=== PATIENT | male | born 1945 | race Caucasian/White ===

== ENCOUNTER 2022-07-20 17:02 | Inpatient (IN) | payer OTHER ==
[~2022-07-20] VITALS: Ht 185.4 cm; Wt 63.0 kg
[2022-07-20 17:57] VITALS: BP_SYST 161
--- NOTE | 2022-07-20 18:39 | NUR ---
PATIENT CAME TO ER FOR GENERALIZE WEAKNESS, LOST 38 LBS IN THE LAST 2 1/2 MONTHS, PLACE IN BED 8 SEEN BY EDP WITH ORDER MARYLU OUT. PATIENT STATES HE HAS NO APPETITE.
[2022-07-20 19:21] LABS: BASOPHILS % (AUTO) 0.1 % (0.0-2.0); EOSINOPHILS % (AUTO) 0.1 % (0.0-4.0); HEMATOCRIT 43.9 % (36-54); HEMOGLOBIN 14.5 g/dL (14.0-18.0); LYMPHOCYTES # (AUTO) 0.9 K/uL (1.0-5.5); LYMPHOCYTES % (AUTO) 5.8 % (20.5-51.5); MEAN CORPUSCULAR HEMOGLOBIN 30 pg (27-31); MEAN CORPUSCULAR HGB CONC 33 % (32-36); MEAN CORPUSCULAR VOLUME 90 fL (79.0-98.0); MONOCYTES # (AUTO) 1.7 K/uL (0.0-1.0); MONOCYTES % (AUTO) 10.6 % (1.7-9.3); NEUTROPHILS # (AUTO) 13.7 K/uL (1.8-7.7); PLATELET COUNT (AUTO) 411 K/uL (130-430); RED BLOOD CELL COUNT(AUTO) 4.88 MIL/uL (4.2-6.2); RED CELL DISTRIBUTION WIDTH 13.6 % (9.0-15.0); WHITE BLOOD COUNT (AUTO) 16.4 K/uL (4.8-10.8)
[2022-07-20 19:22] LABS: ANION GAP 9 (5-15); CHLORIDE 100 mmol/L (98-107); CREATININE 1.09 mg/dL (0.55-1.30); GLUCOSE 121 mg/dL (70-99); UREA NITROGEN, BLOOD 27 mg/dL (8-21)
[2022-07-20 19:27] LABS: ALANINE AMINOTRANSFERASE 60 U/L (12-78); ALBUMIN 2.7 g/dL (3.4-4.8); ASPARTATE AMINOTRANSFERASE 62 U/L (10-37); TOTAL BILIRUBIN 0.6 mg/dL (0.0-1.0)
[2022-07-20 19:36] LABS: CALCIUM 12.5 mg/dL (8.4-11.0)
[2022-07-20 19:51] LABS: BILIRUBIN,URINE NEGATIVE (NEGATIVE); BLOOD, URINE NEGATIVE (NEGATIVE); CLARITY/URINE CLEAR (CLEAR); COLOR,URINE YELLOW (YELLOW); GLUCOSE,URINE NEGATIVE (NEGATIVE); KETONES,URINE NEGATIVE (NEGATIVE); LEUKOCYTE ESTERASE ,URINE NEGATIVE (NEGATIVE); NITRITE, URINE NEGATIVE (NEGATIVE); PH,URINE 5.5 (5.0-8.0); PROTEIN URINE NEGATIVE (NEGATIVE); UROBILINOGEN,URINE 0.2 (0.2-1.0)
[2022-07-20 20:27] LABS: NEUTROPHILS % (AUTO) 83.4 % (40.0-70.0)
[2022-07-20] MEDS ORDERED: MORPHINE 4 MG INJ. 4 MG/ML VIAL IVP ONE (20:45)
[2022-07-20] MEDS ORDERED: cefTRIAXone 1 GM IVPB PREMIX 50 ML IV ONE (20:45)
[2022-07-20] MEDS ORDERED: NACL 0.9% 2,500 ML IV ONE (20:45)
--- NOTE | 2022-07-20 21:11 | NUR ---
COVID SWAB GIVEN TO LAB
--- NOTE | 2022-07-20 21:12 | NUR ---
Admit bed requested Patient will be admitted to care of . Admitted to TELE unit. Diagnosis SEPSIS,METASTATIC PROSTATE CA Inpatient (Yes or No) YES Observation (Yes or No) N Orientation concerns or request close to nursing station (Yes or No) NO Covid Status PENDING On vent or bipap NO Isolation requirements NO Needs a sitter NO From Home (Yes or if No enter name of facility) YES Requires Dialysis (Yes or No) NO Med Rec Completed (Yes of No) PENDING
--- NOTE | 2022-07-20 22:00 | NUR ---
PT IS ALERT AND ORIENTED, RESTING IN BED, COMPLAINING ABOUT THE APIN ALL OVER ABD. BED COMMODE ON THE BED SIDE.
[2022-07-21] VITALS (23 sets, daily range): BP systolic 104–184
--- NOTE | 2022-07-21 00:35 | NUR ---
BAIN CATH INSERTION #14 HONDURAN -Maintains sterile prior inserted Bain cath #14, attempted x1, yellow urine residual with 100ml, pt tolerated well. Bain cath w/ gravity and secured with stat lock in place. Cont to monitor pt.
--- NOTE | 2022-07-21 01:14 | NUR ---
Patient will be admitted to care of [facility]. Admitted to telemetry unit. Will go to room 132 C. Belongings list completed. Complete and up to date summary report printed. SBAR report to be given at bedside with opportunity for questions.
--- NOTE | 2022-07-21 01:14 | NUR ---
ADMISSION NOTE Received patient from ER via gurney by Inna CONTRERAS and EMT transport. Patient admitted with diagnosis of metastatic cancer prostate and sepsis. Patient is awake, alert, oriented X 4. Patient oriented to hospital room, call light, toileting, pain management and safety-teach back done. Prior placed telemetry box on pt, confirmed name,, ID number, and telemetry box number with Jesus. Patient informed that I (Shena) will be his nurse and that their room number is 132-C. IV site of left hand patent after flushed w/ NS, no s/s any infiltration noted. Skin intact. Discussed poc, all safety measures, pt verbalized understanding. pt is able to use call light for assistance. Personal belongings checked and Belongings List documented. Call light within reach.Fall precaution in place, side railsx 3, bed alarmed, near Nurses' station. Cont to monitor pt.
[2022-07-21] MEDS: NACL 0.9% 1,000 ML IV SCH ×4 (01:29→21:05)
--- NOTE | 2022-07-21 01:50 | NUR ---
NOTES -pt is resting in bed comfortably. Pt denies any chest pain,sob,or any acute distress. a telemetry shows arrhythmia, AVB type 1-type 2. VSS 154/80,67, a8dgd=74% r/a. Pt's condition stable. cont to monitor pt.
--- NOTE | 2022-07-21 02:52 | NUR ---
NOTES; -Notified regarding pt had multiple of episode of dysthymia ( AV1-AV2 and possible to AV3), VS 145/70,48,p0jzd=61%. Pt denies any chest pain,sob,or any acute distress. Pt is responsive to all questions and commands w/o any difficulty. -Transfer pt to ICU, stat EKG, consult Dr. Reina and temporary external pacer per .
--- NOTE | 2022-07-21 03:04 | NUR ---
NOTES; Spoke with Dr. Reina regarding pt had multiple episodes of dysythmia (avb1-avb 2 and possible to avb 3), VS 141/69,k9pzm=51% r/a, 60-62. pt's condition stable. Theophyline 200mg po TID per md. Will transfer pt to ICU bed 5.
[2022-07-21] MEDS ORDERED: THEOPHYLLINE ANHYDROUS 200 MG TAB.SR.12H PO ONE (03:06)
--- NOTE | 2022-07-21 03:10 | NUR ---
NOTES; TRANSFERRING PT TO ICU BED 5 -Endorsed to Emmanuel-BEN at bedside. Pt is a/ox4, denies any chest pain,sob,or any acute distress. Non labored breathing noted. Transferring by bed. All belonging taken with pt to this unit.
--- NOTE | 2022-07-21 03:15 | NUR ---
pt.received via [facility].florecita conveyed pt's report/data.pt.presents w heart assessment:av-block:1-2. paged apprised of pt's status;cardio.pt.ordered transfer icu.icu:bed#5. ordered consult. ordered external pacing.pt.presents iv access location lt.wrist iv fluids infusing.o2 therapy via nasal cannulae;rate;2l/min.o2-sat%=96%.pt.presents price cath intact. v/s assessed noted b/p elevated.call light placed w/in access of the pt.
--- NOTE | 2022-07-21 03:45 | NUR ---
paged. apprised of the pt's external pacing required pacing rate. ordered. ordered pacing rate; 65bmp,pain medication:morphine:2mg ivp.o2-sat%=96%.call light placed w/in access of the pt.
[2022-07-21] MEDS: hydrALAZINE HCL 20 MG/ML VIAL IVP PRN (03:56)
[2022-07-21] MEDS ORDERED: NALOXONE HCL 0.4 MG/ML AMP (NARCAN) IVP PRN (04:15)
[2022-07-21] MEDS: MORPHINE 2 MG/ML INJ. SYRINGE IVP PRN ×2 (04:16→08:54)
--- NOTE | 2022-07-21 05:15 | NUR ---
CONSULTATION PAGED/CALLED Reason for Consultation: SEPSIS Person Who was Notified:DARREN Consulting Physician: DHAVAL Environmental Aide Specialty: Ordering Physician: UMAIR
--- NOTE | 2022-07-21 05:16 | NUR ---
CONSULTATION PAGED/CALLED Reason for Consultation: METASTATIC PROSTATE Person Who was Notified:RITESH Consulting Physician: SYLVIA Him Clerk Specialty: Ordering Physician: UMAIR Addendum: 07/21/22 at 0519 by Kamryn Stock CNA PROSTATE CA
--- NOTE | 2022-07-21 06:00 | NUR ---
pt.assessed.v/s assessed values wnl.paced rhythym.pt.assessed for cleanliness.pt.repositioned.call light placed w/in access of the pt.
[2022-07-21 07:49] LABS: ALANINE AMINOTRANSFERASE 46 U/L (12-78); ALBUMIN 2.2 g/dL (3.4-4.8); ANION GAP 6 (5-15); ASPARTATE AMINOTRANSFERASE 51 U/L (10-37); CALCIUM 12.3 mg/dL (8.4-11.0); CHLORIDE 106 mmol/L (98-107); CREATININE 0.92 mg/dL (0.55-1.30); GLUCOSE 87 mg/dL (70-99); TOTAL BILIRUBIN 0.5 mg/dL (0.0-1.0); UREA NITROGEN, BLOOD 21 mg/dL (8-21)
[2022-07-21] MEDS: THEOPHYLLINE ANHYDROUS 200 MG TAB.SR.12H PO SCH ×3 (08:29→20:57)
--- NOTE | 2022-07-21 08:43 | NUR ---
Recd pt awake and alert afib at 67, pt denies CP or sob. Pt connected to external monitor tech on stand by. IVF at 125ml/hr. Provided pt with breakfast, but pt has very poor appetite. Will continue to monitor pt. Ekg done at the bedside.
--- NOTE | 2022-07-21 09:58 | NUR ---
Dr Reina at the bedside, reviewed labs, assessed pt.
[2022-07-21 10:08] LABS: FREE T4 (FREE THYROXINE) 1.2 ng/dl (0.8-1.5); THYROID STIMULATING HORMONE 1.9 uIu/mL (0.36-3.74)
--- NOTE | 2022-07-21 10:42 | NUR ---
top and trim worker at the bedside, providing pt with supportive services.
[2022-07-21] MEDS ORDERED: ENOXAPARIN SODIUM 40 MG/0.4 ML SYRINGE SUBCUT ONE (10:45)
--- NOTE | 2022-07-21 12:20 | NUR ---
SW consult: Pt. lives alone. HEMATOLOGY TECHNICIAN met with Pt. at bedside, he was alert oriented, reported he is hard of hearing spoke to him on his right ear where he has better hearing. Pt. reported he was admitted for weakness and poor appetite. He Has a hx of high blood pressure and was diagnosed with prostate cancer about a year ago. His primary care physician is Dr. Ramey in [place]. His oncologist is Dr. Hyman through [facility]. Pt. lives alone in his apartment; he has no children and was never . He reported he has a good friend Nichol , who he authorizes to call and provide updates to. Nichol assists him per pt. and so does one of his neighbors. Pt. states that he was able to ambulate by himself but started having balance difficulty and weakness. He reported he is not able to eat properly and has no appetite. Pt. was open to home health/hospice post discharged if deemed appropriate. He was also intreated in transportation services as he is no longer able to drive himself. However, he shared that he is on a limited income and concerned if there is any associated cost. He has medi/medi and likely eligible for free senior transportation services. HEMATOLOGY TECHNICIAN spoke with Nichol who stated that Pt. hasnt really allowed for her to visit in 4 months, he is eating 3 ensures a day and is not able to eat solid meals. She reported he has no assistance in the home. Recently a neighbor began assisting with laundry and picking up his prescription but that has been for a week or so and not a long-term source of help. HEMATOLOGY TECHNICIAN left a voicemail for [employer] transportation services; and [employer] [facility] program to inquire if Pt. is eligible for services . HEMATOLOGY TECHNICIAN also left a voicemail with HCP Pt insurance [employer] [place] [employer] for follow up. SS will continue to monitor services that might be needed post DC and be available for Pt. during hospital stay as needed.
[2022-07-21] MEDS ORDERED: ZOLEDRONIC ACID 4 MG in NS 100 ML IV ONE (14:30)
--- NOTE | 2022-07-21 19:30 | NUR ---
RECEIVED AAO, FOLLOWS COMMANDS WELL. BILATERAL LUNGS ARE DIMINISHED AT THE BASES. ON RA, SAT 93%. RETURNS CLERK PACED BEATS 60/MIN. EXTERNAL PACER IS ON, SET AT MA 8, PACER RATE AT 60/MIN. DENIES CHEST PAIN, GOOD BLOOD PRESSURE.SKIN WARM AND DRY. IVF OF D5NS INFUSING AT 125 ML/HE VIA PIV. ABDOMEN IS SOFT AND NON-DISTENDED. BAIN CATH DRAINING WELL TO LAMAR COLOR URINE.
[2022-07-22] VITALS (24 sets, daily range): BP systolic 122–150
[2022-07-22] MEDS: NACL 0.9% 1,000 ML IV SCH ×3 (06:33→21:13)
[2022-07-22 07:50] LABS: BASOPHILS % (AUTO) 0.2 % (0.0-2.0); EOSINOPHILS % (AUTO) 0.3 % (0.0-4.0); HEMATOCRIT 37.2 % (36-54); HEMOGLOBIN 12.5 g/dL (14.0-18.0); MEAN CORPUSCULAR HEMOGLOBIN 31 pg (27-31); MEAN CORPUSCULAR HGB CONC 34 % (32-36); MEAN CORPUSCULAR VOLUME 91 fL (79.0-98.0); MONOCYTES # (AUTO) 1.3 K/uL (0.0-1.0); MONOCYTES % (AUTO) 10.5 % (1.7-9.3); NEUTROPHILS # (AUTO) 10.2 K/uL (1.8-7.7); PLATELET COUNT (AUTO) 326 K/uL (130-430); RED BLOOD CELL COUNT(AUTO) 4.11 MIL/uL (4.2-6.2); RED CELL DISTRIBUTION WIDTH 13.9 % (9.0-15.0); WHITE BLOOD COUNT (AUTO) 12.6 K/uL (4.8-10.8)
[2022-07-22] MEDS: ENOXAPARIN SODIUM 40 MG/0.4 ML SYRINGE SUBCUT SCH (07:54)
[2022-07-22] MEDS: THEOPHYLLINE ANHYDROUS 200 MG TAB.SR.12H PO SCH ×3 (07:55→21:12)
[2022-07-22] MEDS: MORPHINE 2 MG/ML INJ. SYRINGE IVP PRN ×3 (07:55→21:00)
[2022-07-22 08:05] LABS: ALANINE AMINOTRANSFERASE 42 U/L (12-78); ANION GAP 8 (5-15); ASPARTATE AMINOTRANSFERASE 48 U/L (10-37); CALCIUM 10.9 mg/dL (8.4-11.0); CHLORIDE 108 mmol/L (98-107); CHOLESTEROL 120 mg/dL (<200); CREATININE 0.93 mg/dL (0.55-1.30); GLUCOSE 99 mg/dL (70-99); HDL CHOLESTEROL 36 mg/dL (>45); TOTAL BILIRUBIN 0.5 mg/dL (0.0-1.0); TRIGLYCERIDES 87 mg/dL (30-150); UREA NITROGEN, BLOOD 20 mg/dL (8-21)
--- NOTE | 2022-07-22 08:25 | NUR ---
RECD PT awake and alert, sinus luciano with heart block @ 46, pt denies CP and SOB, IVF @125ml/hr, pt complains of abdominal pain 02/11 and medicated with Morphine 2mg IVP per MD order. Dr. Reina at the bedside pacer turned off at the HR @40 MD aware. Stand by pacer restarted to keep HR above 60, continue to monitor PT closely.
[2022-07-22] MEDS ORDERED: FUROSEMIDE 20 MG/2 ML VIAL IVP ONE (09:15)
[2022-07-22] MEDS ORDERED: DOCUSATE SODIUM 250 MG CAPSULE PO ONE (10:45)
[2022-07-22] MEDS ORDERED: POLYETHYLENE GLYCOL 3350, 17 GM/ POWD.PACK PO ONE (13:00)
--- NOTE | 2022-07-22 13:47 | NUR ---
Dietitian Recommendations * Consider a GI soft diet * Rec Ensure HP TID (provides 1050 kcal and 60g protein) * Consider appetite stimulant * Consider PPN, as pt is at risk for severe malnutrition Dextrose 20%, AA 8.5% @ 60mL/hr, IL 20% @ 10mL/hr Provides: 1216 kcal, 61g pro, total volume 1680mL, and GIR: 1.6 Meets:48% of lower est kcal, 61% of lower est protein needs GS, MPH, RD Please refer to RD Assessment for further details Addendum: 07/22/22 at [address] Amended: Links added.
--- NOTE | 2022-07-22 14:19 | NUR ---
Dr Reina at the bedside, wanting cardiac pacer off. pt now SB at 59. assisted pt up to the commode, pt had small bm. escorted back to bed.
--- NOTE | 2022-07-22 16:00 | NUR ---
Pt remains afib at 60 on the monitor, off standby pacer. Assisted pt up to the bedside commode, pt had 2 small bms. will continue to monitor pt closely.
--- NOTE | 2022-07-22 19:30 | NUR ---
PM SHIFT ASSESSMENT Patient is alert and oriented. RR even and unlabored. SB/SR on monitor. IVF infusing to LEFT HAND. Sidhu catheter in place and draining to gravity. Skin warm and dry. Safety precautions in place, call light within reach. Will continue to monitor.
--- NOTE | 2022-07-22 21:05 | NUR ---
PERSON TO NOTIFY UPDATE Patient stated that it is okay to give personal information to family member Kwadwo Garcia Jr. (nephew). Phone number updated on chart.
[2022-07-22] MEDS: FUROSEMIDE 20 MG/2 ML VIAL IVP SCH (21:12)
[2022-07-22] MEDS: DOCUSATE SODIUM 250 MG CAPSULE PO SCH (21:12)
[2022-07-22] MEDS: SORBITOL 70% SOLUTION, 30 ML UDBTL PO SCH (21:12)
[2022-07-23] VITALS (22 sets, daily range): BP systolic 106–189
--- NOTE | 2022-07-23 06:15 | NUR ---
MRSA SCREEN SENT TO LAB.
[2022-07-23] MEDS: NACL 0.9% 1,000 ML IV SCH ×3 (06:16→20:07)
[2022-07-23] MEDS: LEVOTHYROXINE SODIUM 0.025 MG TABLET PO SCH (06:59)
[2022-07-23 07:12] LABS: BASOPHILS % (AUTO) 0.3 % (0.0-2.0); EOSINOPHILS # (AUTO) 0.1 K/uL (0.0-0.4); EOSINOPHILS % (AUTO) 0.8 % (0.0-4.0); HEMATOCRIT 37.3 % (36-54); HEMOGLOBIN 12.7 g/dL (14.0-18.0); LYMPHOCYTES # (AUTO) 1.4 K/uL (1.0-5.5); LYMPHOCYTES % (AUTO) 10.6 % (20.5-51.5); MEAN CORPUSCULAR HEMOGLOBIN 31 pg (27-31); MEAN CORPUSCULAR HGB CONC 34 % (32-36); MEAN CORPUSCULAR VOLUME 90 fL (79.0-98.0); MONOCYTES # (AUTO) 1.5 K/uL (0.0-1.0); MONOCYTES % (AUTO) 11.7 % (1.7-9.3); NEUTROPHILS # (AUTO) 9.8 K/uL (1.8-7.7); NEUTROPHILS % (AUTO) 76.6 % (40.0-70.0); PLATELET COUNT (AUTO) 340 K/uL (130-430); RED BLOOD CELL COUNT(AUTO) 4.15 MIL/uL (4.2-6.2); RED CELL DISTRIBUTION WIDTH 13.6 % (9.0-15.0); WHITE BLOOD COUNT (AUTO) 12.8 K/uL (4.8-10.8)
[2022-07-23 07:37] LABS: ANION GAP 8 (5-15); CALCIUM 9.6 mg/dL (8.4-11.0); CHLORIDE 105 mmol/L (98-107); CREATININE 0.94 mg/dL (0.55-1.30); GLUCOSE 90 mg/dL (70-99); UREA NITROGEN, BLOOD 18 mg/dL (8-21)
--- NOTE | 2022-07-23 08:15 | NUR ---
DR. CEVALLOS HERE TO SEE PATIENT, OKAY TO TRANSFER PATIENT TO TELE PER MD.
[2022-07-23] MEDS: DOCUSATE SODIUM 250 MG CAPSULE PO SCH ×2 (09:00→20:06)
[2022-07-23] MEDS: ENOXAPARIN SODIUM 40 MG/0.4 ML SYRINGE SUBCUT SCH (09:00)
[2022-07-23] MEDS: FUROSEMIDE 20 MG/2 ML VIAL IVP SCH ×2 (09:01→20:06)
[2022-07-23] MEDS: THEOPHYLLINE ANHYDROUS 200 MG TAB.SR.12H PO SCH ×3 (09:01→20:58)
[2022-07-23] MEDS: SORBITOL 70% SOLUTION, 30 ML UDBTL PO SCH ×2 (09:01→20:06)
[2022-07-23] MEDS: POLYETHYLENE GLYCOL 3350, 17 GM/ POWD.PACK PO SCH (09:02)
[2022-07-23] MEDS: MORPHINE 2 MG/ML INJ. SYRINGE IVP PRN ×3 (09:20→22:52)
--- NOTE | 2022-07-23 10:00 | NUR ---
SPOKE TO PATIENTS CINDY PAIGE JR. UPDATE PROVIDED.
--- NOTE | 2022-07-23 10:26 | NUR ---
Spoke with Alessandra requesting orders from Dr. Martinez
--- NOTE | 2022-07-23 10:38 | NUR ---
Spoke to Dr. Alcaraz, orders to DC price but wait until bone density scan is finished. OKAY to put condom cath per .
--- NOTE | 2022-07-23 11:00 | NUR ---
Spoke with Alessandra requesting orders from Dr. Chinchilla.
[2022-07-23 11:26] LABS: CALCIUM, IONIZED 6.3 mg/dL (4.5-5.6)
--- NOTE | 2022-07-23 11:30 | NUR ---
STOOL OCCULT BLOOD TEST SENT TO LAB.
--- NOTE | 2022-07-23 12:39 | NUR ---
SPOKE TO BLAIR YAN FOR TRANSFER TO TELE.
--- NOTE | 2022-07-23 12:40 | NUR ---
ENDORSEMENT PATIENT CARE ENDORSED TO CINDY CONTRERAS.
--- NOTE | 2022-07-23 13:04 | NUR ---
Received patient from [facility] RN: Celeste RN had to leave early, received patient from her. He is a 76 year old male admitted to [place] on 07/20, 76 year old male admitted to [facility], He came in for generalized weakness, weight loss, abdominal pain, nausea. He was admitted to tele unit. DX: sepsis and metastic prostate cancer stage 4- in liver and lung. He is on a regular diet, poor appetite, he has lost 30 pounds in the last month. He was admitted to icu for possible heart block on 07/21. he had a external pacer but per cardio he does not need it and he was on to much beta krystal. Bradycardia noted per NOC RN. PIV: LH24g- intact, patent, dressing CDI. IVF: NS 125cc/hr. NM scan pending for today- scheduled at [address]. [address] and leaking- will be removed after NM scan and condom cath will be placed. Pending hospice referral. transfer order back to telemetry this am- pending bed availability.
--- NOTE | 2022-07-23 13:40 | NUR ---
Midline- consent obtained by patient at bedside. Midline nurse here at this time for placement via ultrasound.
[2022-07-23] MEDS: cefTRIAXone 1 GM in D5W 50 ML IV SCH (14:19)
--- NOTE | 2022-07-23 16:59 | NUR ---
Price removed per order: Patient back from Nuclear Med scan, completed, price removed per patient request and order. Condom cath placed- intact and draining.
--- NOTE | 2022-07-23 19:30 | NUR ---
Report received from TAR ROOFER for continuity of care. Patient stable condition at the moment. No active distress noted.
--- NOTE | 2022-07-23 22:55 | NUR ---
Report given to BEN Bone for continuity of care. Patient downgraded to telemetry. Patient to be going to room 117B. No active distress noted. Patient aware of transfer to telemetry unit.
--- NOTE | 2022-07-23 23:05 | NUR ---
Notified patient's friend, Nichol, of patient transfer to [facility] room 117B.
--- NOTE | 2022-07-23 23:30 | NUR ---
Received pt from ICU for continuity of care Pt AAOx3, VSS, afebrile. Pt on room air. No s/s distress noted. Connected pt back to IVF JR PICC line double lumen, good blood return. Condom cath on with good urine output. Call light within reach. Bed low, locked, siderails up x3. To monitor.
[2022-07-24] MEDS: MORPHINE 2 MG/ML INJ. SYRINGE IVP PRN ×3 (03:16→15:00)
--- NOTE | 2022-07-24 04:30 | NUR ---
Rounds/Pericare Pt asleep, easily awakens. Pt incontinent of bowel. Pericare/linen changed. Bed low, locked, siderails up x3, alarm on. Call light within reach. To monitor.
[2022-07-24] MEDS: NACL 0.9% 1,000 ML IV SCH ×3 (05:15→21:42)
[2022-07-24] MEDS: LEVOTHYROXINE SODIUM 0.025 MG TABLET PO SCH (06:51)
[2022-07-24 08:00] VITALS: BP_SYST 157
--- NOTE | 2022-07-24 08:00 | NUR ---
Initial Notes Patient Aox4. Resting and awake. No ss of distress noted. Breathing is even and nonlabored, on room air. Patient states feels pain 8/10 to back. Vital signs obtained as documented. No SOB noted. PICC line to JR. Patent. IVF running. Condom cath draining by gravity. Bed locked, alarm on, and at lowest position. Call light within reach.
[2022-07-24 08:51] LABS: ANION GAP 9 (5-15); CALCIUM 8.9 mg/dL (8.4-11.0); CHLORIDE 102 mmol/L (98-107); CREATININE 0.75 mg/dL (0.55-1.30); GLUCOSE 88 mg/dL (70-99); PHOSPHORUS 1.4 mg/dL (2.7-4.5); UREA NITROGEN, BLOOD 11 mg/dL (8-21)
[2022-07-24] MEDS: FUROSEMIDE 20 MG/2 ML VIAL IVP SCH ×2 (09:30→21:42)
--- NOTE | 2022-07-24 09:30 | NUR ---
Notes BEN Lopez administering IVP pain medication to patient.
[2022-07-24] MEDS: SORBITOL 70% SOLUTION, 30 ML UDBTL PO SCH ×2 (09:48→21:00)
[2022-07-24] MEDS: POLYETHYLENE GLYCOL 3350, 17 GM/ POWD.PACK PO SCH (09:48)
[2022-07-24] MEDS: THEOPHYLLINE ANHYDROUS 200 MG TAB.SR.12H PO SCH ×3 (09:48→20:57)
[2022-07-24] MEDS: DOCUSATE SODIUM 250 MG CAPSULE PO SCH ×2 (09:48→21:00)
[2022-07-24] MEDS: ENOXAPARIN SODIUM 40 MG/0.4 ML SYRINGE SUBCUT SCH (09:49)
--- NOTE | 2022-07-24 09:50 | NUR ---
Air Commodore REEL STRIPPER recevied a referral to see pt. who lives alone, Dx. : Prostrate Cancer REEL STRIPPER met with pt. in the ICU, beside. Pt. was pleasant, informative and willing to participate in this interview. Pt. confirmed he lives home alone and has a friend, Nichol Schmidt , who is listed an an emergency contact, but pt. stated he is going to switch that to his nephew in [place] , Zhang Garcia, . Pt. stated he has received 3 out of 5 chemo treatments with the last one on 08/26. Pt. went on to say the insurance is stating he does not need any further treatment vs. what the doctor wants. Pts. oncologist is Dr. Sanchez from [place]. Pt. stated the cancer has metastasized to his lungs. REEL STRIPPER asked pt. if he had ever been dx. with anxiety, depression, panic attacks. Pt. state he is fine and denied ever feeling suicidal. Pt. did not have any needs. REEL STRIPPER will remain available as needed.
[2022-07-24 11:23] VITALS: BP_SYST 147
[2022-07-24] MEDS ORDERED: NALOXONE HCL 0.4 MG/ML AMP (NARCAN) IVP PRN (11:45)
--- NOTE | 2022-07-24 12:00 | NUR ---
notes Patient was cleaned and changed, is now eating. HOB elevated. No ss of distress noted. Safety precautions in place and call light within reach.
[2022-07-24] MEDS ORDERED: POTASSIUM CHLORIDE 20 MEQ/PKT PACKET PO ONE (12:15)
[2022-07-24] MEDS: cefTRIAXone 1 GM in D5W 50 ML IV SCH (12:34)
--- NOTE | 2022-07-24 13:46 | NUR ---
Cook Apprentice GANG VIBRATOR OPERATOR received another referral to see pt. GANG VIBRATOR OPERATOR saw pt. yesterday in response to a referral. Pt. has been downgraded from ICU. GANG VIBRATOR OPERATOR met with pt. again, and pt. stated he did not remember. Pt. asked if GANG VIBRATOR OPERATOR had given him any paperwork. GANG VIBRATOR OPERATOR said she gave pt. some DPOA packet to fill out. GANG VIBRATOR OPERATOR educated pt again on how to fill it out and how to get it notarized or have two witnesses sign it. Pt stated he did not need anything else. GANG VIBRATOR OPERATOR will remain available as needed.
[2022-07-24 16:00] VITALS: BP_SYST 152
[2022-07-24] MEDS: HYDROcodone/ACETAMIN 5-325 MG TAB (NORCO/ VICODIN) PO PRN (16:07)
--- NOTE | 2022-07-24 16:30 | NUR ---
Notes Patient has been cleaned and repositioned. No ss of distress noted. Breathing is even and nonlabored, on room air. Patient states pain. pain medication administered. Safety precautions in place and call light within reach.
--- NOTE | 2022-07-24 19:30 | NUR ---
Closing Notes Patient is resting, eyes closed. No ss of acute distress noted. Breathing is even and nonlabored, on room air. No SOB noted. No facial grimace noted. IVF running. Iv patent. All needs met. Patient is stable. Bed is locked, alarm on, and at lowest position. Call light within reach. Endorsed care to BEN Hernandez
[2022-07-24 20:00] VITALS: BP_SYST 182
[2022-07-24] MEDS: MORPHINE 4 MG INJ. 4 MG/ML VIAL IVP PRN (20:55)
[2022-07-25 01:44] VITALS: BP_SYST 157
[2022-07-25] MEDS: HYDROcodone/ACETAMIN 5-325 MG TAB (NORCO/ VICODIN) PO PRN (02:13)
--- NOTE | 2022-07-25 02:39 | NUR ---
Shift Summary: patient is AAOX4. vitals are stable. patient updated on plan of care for shift. patient states he has no questions or concerns at this time. patient informed to use call light if he needs to ambulate for any reason due to high risk for calls. call light within reach, bed set to low, locked, and alarm on. will continue to monitor patient.
[2022-07-25] MEDS: NACL 0.9% 1,000 ML IV SCH ×3 (05:19→20:28)
[2022-07-25] MEDS: LEVOTHYROXINE SODIUM 0.025 MG TABLET PO SCH (06:00)
--- NOTE | 2022-07-25 07:20 | NUR ---
OPENING NOTE RECEIVED sbar FROM NIGHT RN PATIENT IN BED, RESPIRATIONS EVEN, NON LABORED, BED IN LOW AND LOCKED POSITION, CALL LIGHT WITHIN REACH, BED ALARM ON. IVF'S RUNNING ORDERED.
[2022-07-25 08:00] VITALS: BP_SYST 153
[2022-07-25 08:40] LABS: BASOPHILS % (AUTO) 0.2 % (0.0-2.0); EOSINOPHILS # (AUTO) 0.1 K/uL (0.0-0.4); EOSINOPHILS % (AUTO) 0.3 % (0.0-4.0); HEMOGLOBIN 14.2 g/dL (14.0-18.0); LYMPHOCYTES # (AUTO) 1.4 K/uL (1.0-5.5); LYMPHOCYTES % (AUTO) 8.4 % (20.5-51.5); MEAN CORPUSCULAR HEMOGLOBIN 30 pg (27-31); MEAN CORPUSCULAR HGB CONC 33 % (32-36); MEAN CORPUSCULAR VOLUME 91 fL (79.0-98.0); MONOCYTES # (AUTO) 1.4 K/uL (0.0-1.0); MONOCYTES % (AUTO) 8.6 % (1.7-9.3); NEUTROPHILS # (AUTO) 13.5 K/uL (1.8-7.7); NEUTROPHILS % (AUTO) 82.5 % (40.0-70.0); PLATELET COUNT (AUTO) 306 K/uL (130-430); RED BLOOD CELL COUNT(AUTO) 4.74 MIL/uL (4.2-6.2); RED CELL DISTRIBUTION WIDTH 13.7 % (9.0-15.0); WHITE BLOOD COUNT (AUTO) 16.3 K/uL (4.8-10.8)
[2022-07-25] MEDS: ENOXAPARIN SODIUM 40 MG/0.4 ML SYRINGE SUBCUT SCH (09:00)
[2022-07-25 09:09] LABS: ANION GAP 12 (5-15); CALCIUM 9.5 mg/dL (8.4-11.0); CHLORIDE 105 mmol/L (98-107); CREATININE 0.68 mg/dL (0.55-1.30); GLUCOSE 93 mg/dL (70-99); UREA NITROGEN, BLOOD 12 mg/dL (8-21)
--- NOTE | 2022-07-25 09:20 | NUR ---
PAIN PATIENT COMPLAINING OF PAIN TO ABDOMEN, REPOSITIONED , REQUESTING PAIN MEDICATION
--- NOTE | 2022-07-25 09:22 | NUR ---
MD DR WARD BEDSIDE EXAMINING PATIENT
[2022-07-25] MEDS: DOCUSATE SODIUM 250 MG CAPSULE PO SCH ×2 (09:23→20:28)
[2022-07-25] MEDS: FUROSEMIDE 20 MG/2 ML VIAL IVP SCH ×2 (09:23→20:28)
[2022-07-25] MEDS: POLYETHYLENE GLYCOL 3350, 17 GM/ POWD.PACK PO SCH (09:23)
[2022-07-25] MEDS: SORBITOL 70% SOLUTION, 30 ML UDBTL PO SCH ×2 (09:24→20:28)
[2022-07-25] MEDS: THEOPHYLLINE ANHYDROUS 200 MG TAB.SR.12H PO SCH ×3 (09:24→20:28)
[2022-07-25] MEDS: MORPHINE 4 MG INJ. 4 MG/ML VIAL IVP PRN ×3 (09:35→17:57)
[2022-07-25 11:30] VITALS: BP_SYST 143
[2022-07-25] MEDS: cefTRIAXone 1 GM in D5W 50 ML IV SCH (12:20)
--- NOTE | 2022-07-25 13:06 | NUR ---
FAMILY OK PER PATIENT TO TALK WITH FAMILY,NEPHEW CARTER WILHELM INFORMED FAMILY OF PATIENT STATUS, ANSWERED ALL QUESTIONS, FAMILY VERBALIZED UNDERSTANDING
--- NOTE | 2022-07-25 13:30 | NUR ---
PAIN PATIENT COMPLAINING OF PAIN TO ABDOMEN, REPOSITIONED , REQUESTING PAIN MEDICATION
--- NOTE | 2022-07-25 15:00 | NUR ---
Wound Evaluation: Wound Consult ordered for Low Ra Score. Patient evaluated for a low Ra score, now a 17. Patient was awake, alert, and received in a Thomas Bed with an Isoflex OMEGA mattress, and incontinent. Patient is able to turn in bed. Skin is intact. Recommend encourage and assist patient as needed with reposition every 2 hours with pillow support. Elevate, off-load and float bilateral heels with pillows. Offload pressure areas with pillows for pressure re-distribution. Perform skin care and monitor skin integrity Q shift. Use moisture barrier cream on moisture susceptible areas QID and PRN for soiling. Initiate low air loss therapy by adding an air pump to the low air-loss mattress.
[2022-07-25 17:44] VITALS: BP_SYST 147
--- NOTE | 2022-07-25 18:00 | NUR ---
PAIN PATIENT COMPLAINING OF PAIN TO ABDOMEN, REPOSITIONED , REQUESTING PAIN MEDICATION
--- NOTE | 2022-07-25 19:19 | NUR ---
CLOSING NOTE PROVIDED SBAR TO NIGHT RN. PATIENT IN BED RESPIRATIONS EVEN, NON LABORED, BED IN LOW AND LOCKED POSITION CALL LIGHT WITHIN REACH. IVF'S RUNNING ORDERED. BED ALARM ON. ENDORSED CARE TO NIGHT RN
[2022-07-25 20:00] VITALS: BP_SYST 154
--- NOTE | 2022-07-25 21:31 | NUR ---
Shift Summary: patient is AAOX4. vitals are stable. patient updated on plan of care for the evening. patient states he has no questions or concerns at this time. patient aware to use call light if he needs to ambulate for any reason to prevent falls. call light within reach, bed set t low, locked, and alarm on.
--- NOTE | 2022-07-25 22:45 | NUR ---
CONSULTATION CALLED FOR DR. HAGER FOR CONSULT OF POSS COLON CA ORDER BY DR. SEVILLA SPOKE WITH ANTOINETTE
[2022-07-26 00:29] VITALS: BP_SYST 149
[2022-07-26] MEDS: MORPHINE 4 MG INJ. 4 MG/ML VIAL IVP PRN ×4 (01:56→21:55)
[2022-07-26] MEDS: NACL 0.9% 1,000 ML IV SCH ×3 (04:53→21:56)
[2022-07-26] MEDS: LEVOTHYROXINE SODIUM 0.025 MG TABLET PO SCH (06:11)
--- NOTE | 2022-07-26 07:37 | NUR ---
PHYSICAL THERAPY CO-SIGN The Physical Therapy Progress Notes documented by Supervising Film Or Videotape Editor have been reviewed. Reviewed/Co-Signed by: Fadi Figueroa Documentation Done by: SARANYA GOMEZ PTA Addendum: 07/26/22 at 0737 by Fadi Figueroa PT Amended: Links added.
[2022-07-26 08:50] VITALS: BP_SYST 162
[2022-07-26] MEDS: FUROSEMIDE 20 MG/2 ML VIAL IVP SCH ×2 (08:52→21:39)
[2022-07-26] MEDS: ENOXAPARIN SODIUM 40 MG/0.4 ML SYRINGE SUBCUT SCH (08:52)
[2022-07-26] MEDS: SORBITOL 70% SOLUTION, 30 ML UDBTL PO SCH ×2 (08:53→21:00)
[2022-07-26] MEDS: DOCUSATE SODIUM 250 MG CAPSULE PO SCH ×2 (08:53→21:00)
[2022-07-26] MEDS: POLYETHYLENE GLYCOL 3350, 17 GM/ POWD.PACK PO SCH (09:00)
[2022-07-26 11:15] VITALS: BP_SYST 150
[2022-07-26] MEDS: THEOPHYLLINE ANHYDROUS 200 MG TAB.SR.12H PO SCH ×3 (11:24→21:37)
[2022-07-26] MEDS ORDERED: PANTOPRAZOLE SODIUM 40 MG TAB PO ONE (12:45)
--- NOTE | 2022-07-26 12:45 | NUR ---
late entry due to care at the nrsing station requesting medication for heart burn . called dr jules and notified. new order received for protonix po. order carried out.
[2022-07-26] MEDS: cefTRIAXone 1 GM in D5W 50 ML IV SCH (13:17)
[2022-07-26 16:40] VITALS: BP_SYST 138
--- NOTE | 2022-07-26 16:49 | NUR ---
Nutrition F/U Admitting Diagnosis Sepsis, Mets prostate CA Reviewed Pertinent Medical/Surgical Hx Medical Record Patient Friend Medical History Comment: per EMR: 76-year-old gentleman who is known to have prostate cancer with metastasis presented with severe weakness and lethargy was found to have complete heart block PMHx:Dyslipidemia, Essential hypertension on beta-krystal last dose on Saturday morning, Radiation therapy Subjective Information: RD met w/ pt at bedside this afternoon. Pt stated that he does not have an appetite and prefers snack foods like applesauce, pudding, sherbert, and smoothies. Pt reported he has acid reflux and altered taste buds which are affecting his appetite. RD offered smoothies w/ protein supplement mixed in w/ fruits/veggies -- pt agreed. RD notified [facility] staff to provide. RD performed NFPE -- pt appeared adequately-nourished. Bedscale wt taken: 88.5 kg -- seemingly c/w pt's physical appearance. Pt does not appear to be documented wt of 139#/63 kg. Pt reported wt of 229# about 2 mo ago w/ wt loss over the past 2 mo as well. Suspected 34# wt loss within 2 mo. Current Diet Order/Nutrition Support: Regular, Ensure High Protein TID x3 days Patient/Significant Other Able To Verbalize Education Provided Not Indicated Pertinent Medications: lasix, lovenox, morphine, miralax, colace, sorbitol Pertinent Labs: Na/K/BUN/CRE WNL, Mg 1.9 WNL, AST 48 H, ALP 251 H, HDL 36 L, WBC 16.3 H Height (Feet) 6 feet Height (Inches) 1.00 inches Weight (Pounds) 195#/88.6 kg (07/26) Body Mass Index 27.5 kg/m2 (overweight) Usual Weight 229 %UBW 85 %IBW 106 Amelia/Adjusted Body Weight 184#/ 84 kg Recent Weight Change Yes - 28 # in 2 months per pt report. 17% weight change -- significant Weight Status Underweight Gastrointestinal Symptoms Nausea Vomiting Last BM Jul 19, 2022 Food Allergies No Usual Diet At Home Regular, with Ensures TID per pt report Skin Integrity Comment: Ra score: 16 -- Screener And Blender note 07/17, w/ scar on lower sacrum Edema: none documented 07/12 Current % PO None documented Estimated Energy Expenditure (kcals/day) 0282-4420 kcal (30-35 kcal/kg IBW d/t BMI, mets CA) Estimated Protein Required (g/day) 100- 126 g (1.2-1.5 g/kg IBW d/t CA, BMI) Estimated Fluid Required (l/day) 2.5-2.9 L (1mL/kcal d/t maintenance) Problem/Etiology/Signs/Symptoms * Risk for malnutrition R/T catabolic illness AEB estimated nutritional needs for CA/wt gain promotion, BMI: 18.3 kg/m2. *Ongoing Expected Outcomes/Goals PO intake provides >85% estimated nutrient needs, nutrition-related labs trending WNL, continued skin integrity, BM q1-3 days Dietitian Recommendations * Regular diet, Ensure TID, Prosource BID (1170 kcal/day, 90 gm protein/day) * Smoothies BID w/ Prosource added * Encourage good PO intakes * Adhere to pt food preferences Follow Up High Risk: F/U in 2-3 days
--- NOTE | 2022-07-26 17:18 | NUR ---
Dietitian Recommendations * Regular diet, Ensure TID, Prosource BID (1170 kcal/day, 90 gm protein/day) * Smoothies BID w/ Prosource added * Encourage good PO intakes * Adhere to pt food preferences LP, MS, RD Please refer to Nutrition F/U for details.
[2022-07-26 20:00] VITALS: BP_SYST 164
[2022-07-27 01:33] VITALS: BP_SYST 158
[2022-07-27] MEDS: NACL 0.9% 1,000 ML IV SCH ×3 (02:54→23:56)
[2022-07-27 03:27] VITALS: BP_SYST 163
[2022-07-27] MEDS: hydrALAZINE HCL 20 MG/ML VIAL IVP PRN (03:32)
[2022-07-27] MEDS: MORPHINE 4 MG INJ. 4 MG/ML VIAL IVP PRN ×4 (03:33→23:54)
--- NOTE | 2022-07-27 04:19 | NUR ---
Elevated BP & Pain (9) Patient's BP remains above 160, 10 mg Apresoline IVP administered as well as 4 mg of morphine for continual severe pain. Will continue to monitor.
--- NOTE | 2022-07-27 07:40 | NUR ---
PHYSICAL THERAPY CO-SIGN The Physical Therapy Progress Notes documented by Computer Instructor have been reviewed. Reviewed/Co-Signed by: Fadi Figueroa Documentation Done by: SARANYA GOMEZ PTA Addendum: 07/27/22 at 0741 by Fadi Fiugeroa PT Amended: Links added.
[2022-07-27 08:00] VITALS: BP_SYST 159
[2022-07-27] MEDS: LEVOTHYROXINE SODIUM 0.025 MG TABLET PO SCH (08:00)
[2022-07-27 08:50] LABS: BASOPHILS % (AUTO) 0.3 % (0.0-2.0); EOSINOPHILS # (AUTO) 0.1 K/uL (0.0-0.4); EOSINOPHILS % (AUTO) 0.7 % (0.0-4.0); HEMATOCRIT 42.9 % (36-54); HEMOGLOBIN 14.4 g/dL (14.0-18.0); LYMPHOCYTES # (AUTO) 1.6 K/uL (1.0-5.5); LYMPHOCYTES % (AUTO) 10.8 % (20.5-51.5); MEAN CORPUSCULAR HEMOGLOBIN 30 pg (27-31); MEAN CORPUSCULAR HGB CONC 34 % (32-36); MEAN CORPUSCULAR VOLUME 88 fL (79.0-98.0); MONOCYTES # (AUTO) 1.5 K/uL (0.0-1.0); MONOCYTES % (AUTO) 10.1 % (1.7-9.3); NEUTROPHILS # (AUTO) 11.3 K/uL (1.8-7.7); NEUTROPHILS % (AUTO) 78.1 % (40.0-70.0); PLATELET COUNT (AUTO) 381 K/uL (130-430); RED BLOOD CELL COUNT(AUTO) 4.86 MIL/uL (4.2-6.2); RED CELL DISTRIBUTION WIDTH 13.9 % (9.0-15.0); WHITE BLOOD COUNT (AUTO) 14.5 K/uL (4.8-10.8)
[2022-07-27] MEDS: SORBITOL 70% SOLUTION, 30 ML UDBTL PO SCH ×2 (09:00→21:00)
[2022-07-27] MEDS: POLYETHYLENE GLYCOL 3350, 17 GM/ POWD.PACK PO SCH (09:00)
[2022-07-27] MEDS: DOCUSATE SODIUM 250 MG CAPSULE PO SCH ×2 (09:00→21:00)
[2022-07-27 09:11] LABS: ANION GAP 11 (5-15); CALCIUM 8.4 mg/dL (8.4-11.0); CHLORIDE 105 mmol/L (98-107); CREATININE 0.76 mg/dL (0.55-1.30); GLUCOSE 85 mg/dL (70-99); UREA NITROGEN, BLOOD 14 mg/dL (8-21)
[2022-07-27] MEDS ORDERED: POTASSIUM CHLORIDE 20 MEQ/PKT PACKET PO ONE (11:00)
[2022-07-27] MEDS ORDERED: PANTOPRAZOLE SODIUM 40 MG TAB PO ONE (11:15)
[2022-07-27] MEDS: PANTOPRAZOLE SODIUM 40 MG TAB PO SCH (11:26)
[2022-07-27] MEDS: FUROSEMIDE 20 MG/2 ML VIAL IVP SCH ×2 (11:27→23:54)
[2022-07-27] MEDS: ENOXAPARIN SODIUM 40 MG/0.4 ML SYRINGE SUBCUT SCH (11:29)
[2022-07-27 11:31] VITALS: BP_SYST 147
[2022-07-27] MEDS: THEOPHYLLINE ANHYDROUS 200 MG TAB.SR.12H PO SCH ×2 (11:43→16:21)
[2022-07-27] MEDS: cefTRIAXone 1 GM in D5W 50 ML IV SCH (16:22)
[2022-07-27 16:34] VITALS: BP_SYST 143
--- NOTE | 2022-07-27 19:15 | NUR ---
Handoff has been given to Justina
[2022-07-28] VITALS: BP_SYST 162
[2022-07-28 07:57] LABS: BASOPHILS % (AUTO) 0.3 % (0.0-2.0); EOSINOPHILS # (AUTO) 0.1 K/uL (0.0-0.4); EOSINOPHILS % (AUTO) 0.9 % (0.0-4.0); HEMOGLOBIN 12.8 g/dL (14.0-18.0); LYMPHOCYTES # (AUTO) 1.4 K/uL (1.0-5.5); LYMPHOCYTES % (AUTO) 9.4 % (20.5-51.5); MEAN CORPUSCULAR HEMOGLOBIN 30 pg (27-31); MEAN CORPUSCULAR HGB CONC 34 % (32-36); MEAN CORPUSCULAR VOLUME 88 fL (79.0-98.0); MONOCYTES # (AUTO) 1.6 K/uL (0.0-1.0); MONOCYTES % (AUTO) 11.1 % (1.7-9.3); NEUTROPHILS # (AUTO) 11.3 K/uL (1.8-7.7); PLATELET COUNT (AUTO) 330 K/uL (130-430); RED BLOOD CELL COUNT(AUTO) 4.33 MIL/uL (4.2-6.2); RED CELL DISTRIBUTION WIDTH 14.3 % (9.0-15.0); WHITE BLOOD COUNT (AUTO) 14.4 K/uL (4.8-10.8)
[2022-07-28 08:00] VITALS: BP_SYST 158
[2022-07-28 08:17] LABS: ANION GAP 11 (5-15); CALCIUM 7.9 mg/dL (8.4-11.0); CHLORIDE 106 mmol/L (98-107); CREATININE 0.66 mg/dL (0.55-1.30); GLUCOSE 95 mg/dL (70-99); UREA NITROGEN, BLOOD 18 mg/dL (8-21)
--- NOTE | 2022-07-28 08:41 | NUR ---
OPENING NOTE PT'S SLEEPING IN BED. NO S/S ACUTE DISTRESS NOTED. BED IS LOCKED AND AT LOW POSITION. IVF RUNNING ORDERED. IV SITE REMAIN PATENT AND INTACT. CALL LIGHT WITHIN REACH. SAFETY PRECAUTION IN PLACED. WILL CONT TO MONITOR
[2022-07-28] MEDS: LEVOTHYROXINE SODIUM 0.025 MG TABLET PO SCH (08:46)
[2022-07-28] MEDS: MORPHINE 4 MG INJ. 4 MG/ML VIAL IVP PRN ×3 (08:49→21:53)
[2022-07-28] MEDS: NACL 0.9% 1,000 ML IV SCH ×2 (08:53→15:07)
[2022-07-28] MEDS: ENOXAPARIN SODIUM 40 MG/0.4 ML SYRINGE SUBCUT SCH (08:56)
[2022-07-28] MEDS: THEOPHYLLINE ANHYDROUS 200 MG TAB.SR.12H PO SCH ×3 (09:00→21:52)
[2022-07-28] MEDS: DOCUSATE SODIUM 250 MG CAPSULE PO SCH ×2 (09:00→21:52)
[2022-07-28] MEDS: POTASSIUM CHLORIDE 20 MEQ/PKT PACKET PO SCH (09:00)
[2022-07-28] MEDS: POLYETHYLENE GLYCOL 3350, 17 GM/ POWD.PACK PO SCH (09:00)
[2022-07-28] MEDS: SORBITOL 70% SOLUTION, 30 ML UDBTL PO SCH ×2 (09:00→21:53)
[2022-07-28] MEDS: FUROSEMIDE 20 MG/2 ML VIAL IVP SCH (09:01)
[2022-07-28] MEDS: PANTOPRAZOLE SODIUM 40 MG TAB PO SCH (09:02)
[2022-07-28 11:31] VITALS: BP_SYST 149
--- NOTE | 2022-07-28 12:05 | NUR ---
NOTES; PT IN BED, RESTING. DR. WARD AT BEDSIDE, ASSESSING THE PT
[2022-07-28] MEDS: cefTRIAXone 1 GM in D5W 50 ML IV SCH (13:52)
[2022-07-28 15:15] LABS: NEUTROPHILS % (AUTO) 78.3 % (40.0-70.0)
[2022-07-28 15:43] VITALS: BP_SYST 153
--- NOTE | 2022-07-28 16:33 | NUR ---
NOTES; PROVIDED PAIN MEDICATION ORDERED. WILL CONT TO MONITOR
--- NOTE | 2022-07-28 19:00 | NUR ---
CLOSING NOTE PT IN BED, RESTING WITH EVEN AND REGULAR BREATHING. IVF RUNNING ORDERED. NO S/S IV INFILTRATION OR INFECTION NOTED. CALL LIGHT WITHIN REACH. SAFETY PRECAUTION IN PLACED. WILL ENDORSE CARE TO MANUFACTURING BUSINESS ANALYST NURSE.
[2022-07-28 20:00] VITALS: BP_SYST 143
--- NOTE | 2022-07-28 20:30 | NUR ---
OPENING Patient AOx4, resting in bed, unlabored breathing on room air. IV fluids infusing as ordered. Uses urinal. Able to turn side to side in bed. Safety precautions in place.
[2022-07-29 00:24] VITALS: BP_SYST 156
--- NOTE | 2022-07-29 04:34 | NUR ---
ROUNDS Patient asleep in bed, unlabored breathing on room air. Safety precautions in place.
[2022-07-29] MEDS: MORPHINE 4 MG INJ. 4 MG/ML VIAL IVP PRN ×3 (05:20→17:59)
[2022-07-29] MEDS: NACL 0.9% 1,000 ML IV SCH ×2 (05:21→21:43)
[2022-07-29] MEDS: LEVOTHYROXINE SODIUM 0.025 MG TABLET PO SCH (06:09)
--- NOTE | 2022-07-29 07:05 | NUR ---
CLOSING Patient resting in bed, no distress noted. Turned and repositioned. Given morphine PRN for complaint of abdominal pain. Uses urinal. AOx4. Hard of hearing. IV fluids infusing to PICC as ordered. Safety precautions in place.
--- NOTE | 2022-07-29 07:10 | NUR ---
OPENING NOTE PT IN BED, SLEEPING. NO S/S PAIN OR DISCOMFORT NOTED. IVF RUNNING ORDERED. BED IS LOCKED AND AT LOW POSITION. WILL CONT TO MONITOR
[2022-07-29 08:00] VITALS: BP_SYST 154
[2022-07-29 09:19] LABS: ALANINE AMINOTRANSFERASE 72 U/L (12-78); ANION GAP 10 (5-15); ASPARTATE AMINOTRANSFERASE 83 U/L (10-37); C-REACTIVE PROTEIN QUANT 9.8 mg/dL (0-0.5); CALCIUM 8.3 mg/dL (8.4-11.0); CHLORIDE 106 mmol/L (98-107); CREATININE 0.78 mg/dL (0.55-1.30); GLUCOSE 89 mg/dL (70-99); TOTAL BILIRUBIN 0.4 mg/dL (0.0-1.0); UREA NITROGEN, BLOOD 17 mg/dL (8-21)
[2022-07-29] MEDS: ENOXAPARIN SODIUM 40 MG/0.4 ML SYRINGE SUBCUT SCH (10:03)
[2022-07-29] MEDS: POLYETHYLENE GLYCOL 3350, 17 GM/ POWD.PACK PO SCH (10:03)
[2022-07-29] MEDS: PANTOPRAZOLE SODIUM 40 MG TAB PO SCH (10:04)
[2022-07-29] MEDS: THEOPHYLLINE ANHYDROUS 200 MG TAB.SR.12H PO SCH ×4 (10:04→21:56)
[2022-07-29] MEDS: POTASSIUM CHLORIDE 20 MEQ/PKT PACKET PO SCH (10:04)
[2022-07-29] MEDS: DOCUSATE SODIUM 250 MG CAPSULE PO SCH ×2 (10:04→21:00)
[2022-07-29] MEDS: SORBITOL 70% SOLUTION, 30 ML UDBTL PO SCH ×2 (10:05→21:00)
[2022-07-29] MEDS: FUROSEMIDE 20 MG/2 ML VIAL IVP SCH (10:05)
[2022-07-29 11:36] VITALS: BP_SYST 156
--- NOTE | 2022-07-29 12:30 | NUR ---
NOTES; PT IN BED USES URINAL, DENIES ANY ACUTE DISTRESS. BED IS LOCKED AND AT LOW POSITION. ENCOURAGED TO USE CALL LIGHT FOR ASSISTANCE. WILL CONT TO MONITOR
[2022-07-29] MEDS: cefTRIAXone 1 GM in D5W 50 ML IV SCH (12:44)
[2022-07-29 12:56] LABS: BASOPHILS # (AUTO) 0.1 K/uL (0.0-0.2); BASOPHILS % (AUTO) 0.8 % (0.0-2.0); EOSINOPHILS # (AUTO) 0.2 K/uL (0.0-0.4); HEMATOCRIT 37.3 % (36-54); HEMOGLOBIN 12.7 g/dL (14.0-18.0); LYMPHOCYTES # (AUTO) 1.5 K/uL (1.0-5.5); LYMPHOCYTES % (AUTO) 9.5 % (20.5-51.5); MEAN CORPUSCULAR HEMOGLOBIN 30 pg (27-31); MEAN CORPUSCULAR HGB CONC 34 % (32-36); MEAN CORPUSCULAR VOLUME 88 fL (79.0-98.0); MONOCYTES # (AUTO) 1.5 K/uL (0.0-1.0); MONOCYTES % (AUTO) 9.7 % (1.7-9.3); NEUTROPHILS # (AUTO) 12.2 K/uL (1.8-7.7); PLATELET COUNT (AUTO) 355 K/uL (130-430); RED BLOOD CELL COUNT(AUTO) 4.24 MIL/uL (4.2-6.2); RED CELL DISTRIBUTION WIDTH 14.3 % (9.0-15.0); WHITE BLOOD COUNT (AUTO) 15.4 K/uL (4.8-10.8)
--- NOTE | 2022-07-29 13:30 | NUR ---
NOTES; PROVIDED PAIN MEDICATION ORDERED. WILL CONT TO MONITOR.
[2022-07-29 13:44] LABS: ERYTHROCYTE SEDIMENTATION RATE 82 MM/HR (0-15)
[2022-07-29 15:25] VITALS: BP_SYST 139
--- NOTE | 2022-07-29 18:57 | NUR ---
CLOSING NOTE; PT IN BED,RESTING. IVF RUNNING ORDERED. NO IV S/S INFILTRATION OR INFECTION NOTED. BED IS LOCKED AND AT LOW POSITION. SAFETY PRECAUTION IN PLACED. WILL ENDORSE CARE TO DOOR OPERATOR RN.
--- NOTE | 2022-07-29 20:00 | NUR ---
OPENING Received report from day shift nurse. Patient resting in bed, unlabored breathing on room air. IV fluids infusing as ordered. Safety precautions in place.
[2022-07-29 20:03] VITALS: BP_SYST 151
[2022-07-30 00:17] VITALS: BP_SYST 148
[2022-07-30] MEDS: MORPHINE 4 MG INJ. 4 MG/ML VIAL IVP PRN ×5 (01:12→18:31)
--- NOTE | 2022-07-30 01:30 | NUR ---
Given morphine PRN for abdominal/back pain. Turned and repositioned with pillow support. Safety precautions in place.
--- NOTE | 2022-07-30 05:55 | NUR ---
CLOSING Patient resting in bed, unlabored breathing on room air. Complained of abdominal and back pain, given morphine PRN with some relief. Turned and repositioned with pillow support. IV fluids infusing. Safety precautions in place.
[2022-07-30] MEDS: LEVOTHYROXINE SODIUM 0.025 MG TABLET PO SCH (06:13)
[2022-07-30 08:42] LABS: BASOPHILS # (AUTO) 0.1 K/uL (0.0-0.2); BASOPHILS % (AUTO) 0.7 % (0.0-2.0); EOSINOPHILS # (AUTO) 0.1 K/uL (0.0-0.4); HEMATOCRIT 39.3 % (36-54); HEMOGLOBIN 13.1 g/dL (14.0-18.0); LYMPHOCYTES # (AUTO) 1.5 K/uL (1.0-5.5); LYMPHOCYTES % (AUTO) 10.3 % (20.5-51.5); MEAN CORPUSCULAR HEMOGLOBIN 30 pg (27-31); MEAN CORPUSCULAR HGB CONC 33 % (32-36); MEAN CORPUSCULAR VOLUME 88 fL (79.0-98.0); MONOCYTES # (AUTO) 1.5 K/uL (0.0-1.0); MONOCYTES % (AUTO) 10.5 % (1.7-9.3); NEUTROPHILS % (AUTO) 77.5 % (40.0-70.0); PLATELET COUNT (AUTO) 375 K/uL (130-430); RED BLOOD CELL COUNT(AUTO) 4.46 MIL/uL (4.2-6.2); RED CELL DISTRIBUTION WIDTH 14.5 % (9.0-15.0); WHITE BLOOD COUNT (AUTO) 14.2 K/uL (4.8-10.8)
[2022-07-30 08:45] VITALS: BP_SYST 148
--- NOTE | 2022-07-30 08:45 | NUR ---
INITIAL ROUNDS Received pt AAOx4,no s/s resp distress, c/o pain-will check on pain medications. IVF infusing well to JR PICC line at ordered rate with no s/s infiltration to site. Plan of care for the day reviewed with pt-pt verbalized his understanding. Noted edema to bilat feet-feet elevated. Disease process, skin and safety precautions discussed-teach back done. Side rails up x3, bed alarm on for safety. Call light within reach.
[2022-07-30] MEDS: SORBITOL 70% SOLUTION, 30 ML UDBTL PO SCH ×2 (09:00→21:00)
[2022-07-30] MEDS: DOCUSATE SODIUM 250 MG CAPSULE PO SCH ×2 (09:00→21:00)
[2022-07-30] MEDS: POLYETHYLENE GLYCOL 3350, 17 GM/ POWD.PACK PO SCH (09:00)
[2022-07-30 09:11] LABS: ALANINE AMINOTRANSFERASE 60 U/L (12-78); ANION GAP 9 (5-15); ASPARTATE AMINOTRANSFERASE 67 U/L (10-37); CALCIUM 8.2 mg/dL (8.4-11.0); CHLORIDE 107 mmol/L (98-107); CREATININE 0.74 mg/dL (0.55-1.30); GLUCOSE 85 mg/dL (70-99); TOTAL BILIRUBIN 0.6 mg/dL (0.0-1.0); UREA NITROGEN, BLOOD 16 mg/dL (8-21)
[2022-07-30 09:53] LABS: PHOSPHORUS 0.9 mg/dL (2.7-4.5)
[2022-07-30] MEDS: POTASSIUM CHLORIDE 20 MEQ/PKT PACKET PO SCH (09:57)
[2022-07-30] MEDS: FUROSEMIDE 20 MG/2 ML VIAL IVP SCH (09:58)
[2022-07-30] MEDS: PANTOPRAZOLE SODIUM 40 MG TAB PO SCH (10:01)
[2022-07-30] MEDS: THEOPHYLLINE ANHYDROUS 200 MG TAB.SR.12H PO SCH ×3 (10:02→23:19)
[2022-07-30] MEDS: ENOXAPARIN SODIUM 40 MG/0.4 ML SYRINGE SUBCUT SCH (10:03)
[2022-07-30 11:51] VITALS: BP_SYST 159
[2022-07-30 14:04] LABS: ERYTHROCYTE SEDIMENTATION RATE 81 MM/HR (0-15)
[2022-07-30 17:33] VITALS: BP_SYST 146
[2022-07-30] MEDS: NACL 0.9% 1,000 ML IV SCH ×2 (18:21→23:25)
--- NOTE | 2022-07-30 19:32 | NUR ---
CLOSING NOTE Pt resting quietly in bed with no s/s resp distress, no further c/o pain or discomfort. IVF infusing well to JR at ordered rate with no s/s infiltration to site. Endorsed care to overnight caregiver nurse. All precautions remain in place. Call light within reach.
--- NOTE | 2022-07-30 19:56 | NUR ---
Nutrition F/U: RDN reviewed pts current EMR including diet Hx, physician notes, nursing notes, pertinent labs, medications, procedures, care trends, and care activity. Shortened note d/t high RD workload Admission Dx: Sepsis, Mets prostate CA PMH: per EMR: 76-year-old gentleman who is known to have prostate cancer with metastasis presented with severe weakness and lethargy was found to have complete heart block PMHx: Dyslipidemia, Essential hypertension on beta-krystal last dose on Saturday morning, Radiation therapy Subjective information: RD rounded to patient room on telemetry floor and s/w patient at bedside. Pt reports his appetite is not great because he is not getting foods he likes. Per pt he does not drink coffee and does not eat dairy, but he requested hot chocolate, vanilla ice cream, and Sherbert. Pt stated he has asked multiple staff for these items but has not received them. RD brought patient an orange Sherbert and informed pt the ice cream contains dairy, pt agreeable to Sherbert at this time. Preferences updated in computrition. Pt inquired if FNS has dairy free Ensure ONS, RD informed patient that Ensure ONS is lactose free. Pt reports he has been drinking the ensures, so patient receiving ~650 kcal/day from PO intake + 1170 kcals from Ensure HP TID/ Prosource BID = 1820 kcals/day total; ~30g pro/day from PO intake + 90g pro from Ensure HP TID/ Prosource BID = 120g protein/day total. This provides 72% lower estimated caloric needs and 95% upper estimated protein needs. PO intake with nutritional supplements is almost adequate to meet patients nutritional needs. Pt attests to BM q2 days as normal, but no BM today. Pt endorses his LBM 12/25 was soft. Current diet/Nutrition support: Regular diet, Ensure High Protein TID, Prosource BID x 4 days Current % PO 26% x 9 meals = Poor Estimated Energy Expenditure (kcals/day) 8062-3122 kcal (30-35 kcal/kg IBW d/t BMI, mets CA) Estimated Protein Required (g/day) 100- 126 g (1.2-1.5 g/kg IBW d/t CA, BMI) Estimated Fluid Required (l/day) 2.5-2.9 L (1mL/kcal d/t maintenance) Problem/Etiology/Signs/Symptoms * Risk for malnutrition R/T catabolic illness AEB estimated nutritional needs for CA/wt gain promotion, BMI: 18.3 kg/m2. *Ongoing Expected Outcomes/Goals PO intake provides >85% estimated nutrient needs, nutrition-related labs trending WNL, continued skin integrity, BM q1-3 days Dietitian Recommendations * Continue Regular diet, Ensure TID, Prosource BID (Supplements yield 1170 kcals, 90g protein) * Continue Smoothies BID w/ Prosource added * Adhere to pt food preferences for increased PO Follow Up High Risk: F/U in 2-3 days
--- NOTE | 2022-07-30 19:59 | NUR ---
Dietitian Recommendations * Continue Regular diet, Ensure TID, Prosource BID (Supplements yield 1170 kcals and 90g protein per day) * Continue Smoothies BID w/ Prosource added * Adhere to pt food preferences for increased PO intake Please refer to nutrition F/U for details, thanks! Bronwyn Ramos MPH, RDN
[2022-07-30 20:00] VITALS: BP_SYST 157
--- NOTE | 2022-07-30 21:00 | NUR ---
Patient resting in bed, unlabored breathing on room air. No complaint of pain. Patient refused Colace and Sorbitol, stating he had a bowel movement yesterday and does not want to take them tonight. IV fluids infusing as ordered. Patient had very little of dinner but requested apple juice. Encouraged to drink the supplement as well. Safety precautions in place.
--- NOTE | 2022-07-30 21:54 | NUR ---
Spoke with Jeramy from after hours pharmacy about timing of 2100 theophylline since patient received afternoon dose late. Jeramy stated the medication is ok to give around 2300.
--- NOTE | 2022-07-30 22:14 | NUR ---
DR. ANGLIN Spoke with international representative Dr. Anglin. Progress notes state to continue Rocephin but order has reached stop date. Latest WBC 14.2. Dr. Anglin stated to hold off on the antibiotics for now and gave order for UA and CBC in the morning, and they will re-evaluate from there.
--- NOTE | 2022-07-30 23:30 | NUR ---
ROUNDS Patient resting in bed, unlabored breathing on room air. IV fluids infusing. No complaint of pain. Safety precautions in place.
[2022-07-31] VITALS: BP_SYST 149
[2022-07-31] MEDS: MORPHINE 4 MG INJ. 4 MG/ML VIAL IVP PRN ×2 (02:33→08:08)
--- NOTE | 2022-07-31 03:15 | NUR ---
Urine sample collected and sent to lab.
[2022-07-31 03:36] LABS: BILIRUBIN,URINE NEGATIVE (NEGATIVE); BLOOD, URINE NEGATIVE (NEGATIVE); CLARITY/URINE CLEAR (CLEAR); COLOR,URINE YELLOW (YELLOW); GLUCOSE,URINE NEGATIVE (NEGATIVE); KETONES,URINE NEGATIVE (NEGATIVE); LEUKOCYTE ESTERASE ,URINE NEGATIVE (NEGATIVE); NITRITE, URINE NEGATIVE (NEGATIVE); PH,URINE 6.5 (5.0-8.0); PROTEIN URINE NEGATIVE (NEGATIVE); UROBILINOGEN,URINE 0.2 (0.2-1.0)
[2022-07-31] MEDS: LEVOTHYROXINE SODIUM 0.025 MG TABLET PO SCH (06:15)
[2022-07-31 07:06] LABS: BASOPHILS # (AUTO) 0.1 K/uL (0.0-0.2); BASOPHILS % (AUTO) 0.4 % (0.0-2.0); EOSINOPHILS # (AUTO) 0.1 K/uL (0.0-0.4); EOSINOPHILS % (AUTO) 0.9 % (0.0-4.0); HEMATOCRIT 35.7 % (36-54); HEMOGLOBIN 12.1 g/dL (14.0-18.0); LYMPHOCYTES # (AUTO) 1.5 K/uL (1.0-5.5); MEAN CORPUSCULAR HEMOGLOBIN 30 pg (27-31); MEAN CORPUSCULAR HGB CONC 34 % (32-36); MEAN CORPUSCULAR VOLUME 88 fL (79.0-98.0); MONOCYTES # (AUTO) 1.6 K/uL (0.0-1.0); MONOCYTES % (AUTO) 11.5 % (1.7-9.3); NEUTROPHILS # (AUTO) 10.5 K/uL (1.8-7.7); NEUTROPHILS % (AUTO) 76.2 % (40.0-70.0); PLATELET COUNT (AUTO) 355 K/uL (130-430); RED BLOOD CELL COUNT(AUTO) 4.05 MIL/uL (4.2-6.2); RED CELL DISTRIBUTION WIDTH 14.5 % (9.0-15.0); WHITE BLOOD COUNT (AUTO) 13.7 K/uL (4.8-10.8)
--- NOTE | 2022-07-31 07:13 | NUR ---
CLOSING Patient resting in bed, unlabored breathing on room air. Given morphine PRN once during night for right side abdominal pain. Patient with poor oral intake but had two apple juices and some of supplement this morning. Patient stated he had some beef and chicken yesterday that "was actually quite good." IV fluids infusing as ordered. Patient uses urinal, incontinent at times. Turned and repositioned with pillow support. Safety precautions in place.
[2022-07-31 07:45] LABS: ALANINE AMINOTRANSFERASE 51 U/L (12-78); ALBUMIN 1.8 g/dL (3.4-4.8); ANION GAP 10 (5-15); ASPARTATE AMINOTRANSFERASE 53 U/L (10-37); CALCIUM 7.9 mg/dL (8.4-11.0); CHLORIDE 105 mmol/L (98-107); CREATININE 0.54 mg/dL (0.55-1.30); GLUCOSE 90 mg/dL (70-99); TOTAL BILIRUBIN 0.5 mg/dL (0.0-1.0); UREA NITROGEN, BLOOD 16 mg/dL (8-21)
[2022-07-31 07:48] VITALS: BP_SYST 166
--- NOTE | 2022-07-31 08:02 | NUR ---
PHYSICAL THERAPY CO-SIGN The Physical Therapy Progress Notes documented by Yard Supervisor Cotton Gin have been reviewed. Reviewed/Co-Signed by: Fadi Figueroa Documentation Done by: KATIANA JAIME PTA Addendum: 07/31/22 at 0803 by Fadi Figueroa PT Amended: Links added.
--- NOTE | 2022-07-31 08:03 | NUR ---
PHYSICAL THERAPY CO-SIGN The Physical Therapy Progress Notes documented by Semiconductor Processing Technician have been reviewed. Reviewed/Co-Signed by: Fadi Figueroa Documentation Done by: KATIANA JAIME PTA Addendum: 07/31/22 at 0803 by Fadi Figueroa PT Amended: Links added.
[2022-07-31] MEDS: FUROSEMIDE 20 MG/2 ML VIAL IVP SCH (08:09)
[2022-07-31] MEDS: POLYETHYLENE GLYCOL 3350, 17 GM/ POWD.PACK PO SCH (08:09)
[2022-07-31] MEDS: PANTOPRAZOLE SODIUM 40 MG TAB PO SCH (08:09)
[2022-07-31] MEDS: DOCUSATE SODIUM 250 MG CAPSULE PO SCH ×2 (08:09→20:16)
[2022-07-31] MEDS: POTASSIUM CHLORIDE 20 MEQ/PKT PACKET PO SCH (08:09)
[2022-07-31] MEDS: SORBITOL 70% SOLUTION, 30 ML UDBTL PO SCH ×2 (08:10→20:18)
[2022-07-31] MEDS: THEOPHYLLINE ANHYDROUS 200 MG TAB.SR.12H PO SCH ×3 (08:10→20:15)
[2022-07-31] MEDS: ENOXAPARIN SODIUM 40 MG/0.4 ML SYRINGE SUBCUT SCH (08:10)
[2022-07-31 11:05] VITALS: BP_SYST 156
--- NOTE | 2022-07-31 12:59 | NUR ---
PHYSICAL THERAPY CO-SIGN The Physical Therapy Progress Notes documented by Band Lining Bander have been reviewed. Reviewed/Co-Signed by: Fadi Figueroa Documentation Done by: SARANYA GOMEZ PTA Addendum: 07/31/22 at 1300 by Fadi Figueroa PT Amended: Links added.
--- NOTE | 2022-07-31 13:19 | NUR ---
PATIENT'S NEPHEW HERE AND WANTS TO KNOW THE PLAN OF CARE. WHY WE NEED THE COLONOSCOPY. WANTS TO SPEAK WITH TELECOMMUNICATION SYSTEMS DESIGNER. TOLD HIM CM ARE NOT HERE TODAY.
[2022-07-31] MEDS ORDERED: LIDOCAINE PATCH 5% 1 EA TP ONE (14:00)
[2022-07-31] MEDS ORDERED: amLODIPine BESYLATE 5 MG TABLET PO ONE (14:15)
[2022-07-31] MEDS: NACL 0.9% 1,000 ML IV SCH (14:37)
--- NOTE | 2022-07-31 15:33 | NUR ---
CONSULTATION PAGED/CALLED Reason for Consultation: WBC Person Who was Notified: DAMON Consulting Physician: LAILA ZIEGLER Drainlayer Specialty: Ordering Physician: CHIRAG ANGLIN
[2022-07-31 15:45] VITALS: BP_SYST 152
[2022-07-31 17:15] LABS: BILIRUBIN,URINE NEGATIVE (NEGATIVE); BLOOD, URINE NEGATIVE (NEGATIVE); CLARITY/URINE CLEAR (CLEAR); COLOR,URINE YELLOW (YELLOW); GLUCOSE,URINE NEGATIVE (NEGATIVE); KETONES,URINE NEGATIVE (NEGATIVE); LEUKOCYTE ESTERASE ,URINE NEGATIVE (NEGATIVE); NITRITE, URINE NEGATIVE (NEGATIVE); PH,URINE 7.5 (5.0-8.0); PROTEIN URINE NEGATIVE (NEGATIVE)
[2022-07-31] MEDS: HYDROcodone/ACETAMIN 5-325 MG TAB (NORCO/ VICODIN) PO PRN ×2 (17:25→23:15)
--- NOTE | 2022-07-31 17:28 | NUR ---
DR SARGENT HERE AND SEEN PT.
--- NOTE | 2022-07-31 17:29 | NUR ---
CALLED OFFICE OF DR HAGER 2X BUT NO ANSWER. LEFT MESAGE TO INFORM DR HAGER THAT PT AND PT;S FAMILY NW AGREEABLE WITH COLONOSCOPY. BUT NOBODY CALLED ME BACK.
--- NOTE | 2022-07-31 18:56 | NUR ---
DR HAGER DID NOT CALL BACK. UNABLE TO MAKE MD AWARE THAT FAMILY WANTS TO GO AHEAD WITH COLONOSCOPY. UNIT ANAY GLEZ ALSO SENT A PAGE TO .
[2022-07-31 20:00] VITALS: BP_SYST 134
--- NOTE | 2022-07-31 22:30 | NUR ---
Patient in bed. No acute distress noted. Will continue to monitor.
[2022-08-01 00:10] VITALS: BP_SYST 141
[2022-08-01] MEDS: LEVOTHYROXINE SODIUM 0.025 MG TABLET PO SCH (04:28)
[2022-08-01] MEDS: HYDROcodone/ACETAMIN 5-325 MG TAB (NORCO/ VICODIN) PO PRN ×3 (04:28→18:11)
[2022-08-01] MEDS: NACL 0.9% 1,000 ML IV SCH (05:34)
[2022-08-01 07:32] LABS: BASOPHILS # (AUTO) 0.1 K/uL (0.0-0.2); BASOPHILS % (AUTO) 0.4 % (0.0-2.0); EOSINOPHILS # (AUTO) 0.1 K/uL (0.0-0.4); EOSINOPHILS % (AUTO) 0.5 % (0.0-4.0); HEMATOCRIT 38.1 % (36-54); HEMOGLOBIN 12.7 g/dL (14.0-18.0); LYMPHOCYTES # (AUTO) 1.4 K/uL (1.0-5.5); LYMPHOCYTES % (AUTO) 9.3 % (20.5-51.5); MEAN CORPUSCULAR HEMOGLOBIN 30 pg (27-31); MEAN CORPUSCULAR HGB CONC 33 % (32-36); MEAN CORPUSCULAR VOLUME 89 fL (79.0-98.0); MONOCYTES # (AUTO) 1.5 K/uL (0.0-1.0); MONOCYTES % (AUTO) 10.5 % (1.7-9.3); NEUTROPHILS # (AUTO) 11.7 K/uL (1.8-7.7); NEUTROPHILS % (AUTO) 79.3 % (40.0-70.0); PLATELET COUNT (AUTO) 386 K/uL (130-430); RED CELL DISTRIBUTION WIDTH 14.4 % (9.0-15.0); WHITE BLOOD COUNT (AUTO) 14.7 K/uL (4.8-10.8)
--- NOTE | 2022-08-01 07:35 | NUR ---
OPENING NOTE Received patient from nightshift nurse. Patient resting in bed A/O x 4 Polish speaking. Breathing even and unlabored, no pain, no sob, no distress noted at this time. Patient has L upper arm PICC patent on SL. All needs met, call light within reach, bed is locked in lowest position. Will continue to monitor.
[2022-08-01 07:52] VITALS: BP_SYST 151
[2022-08-01 08:08] LABS: ANION GAP 8 (5-15); CALCIUM 8.7 mg/dL (8.4-11.0); CHLORIDE 107 mmol/L (98-107); CREATININE 0.79 mg/dL (0.55-1.30); GLUCOSE 93 mg/dL (70-99); UREA NITROGEN, BLOOD 17 mg/dL (8-21)
[2022-08-01] MEDS: POLYETHYLENE GLYCOL 3350, 17 GM/ POWD.PACK PO SCH (09:00)
[2022-08-01] MEDS: DOCUSATE SODIUM 250 MG CAPSULE PO SCH ×2 (09:00→20:46)
[2022-08-01] MEDS: SORBITOL 70% SOLUTION, 30 ML UDBTL PO SCH ×2 (09:00→20:46)
[2022-08-01] MEDS: amLODIPine BESYLATE 5 MG TABLET PO SCH (09:39)
[2022-08-01] MEDS: PANTOPRAZOLE SODIUM 40 MG TAB PO SCH (09:39)
[2022-08-01] MEDS: THEOPHYLLINE ANHYDROUS 200 MG TAB.SR.12H PO SCH ×3 (09:40→20:44)
[2022-08-01] MEDS: POTASSIUM CHLORIDE 20 MEQ/PKT PACKET PO SCH (09:40)
[2022-08-01] MEDS: ENOXAPARIN SODIUM 40 MG/0.4 ML SYRINGE SUBCUT SCH (09:41)
[2022-08-01] MEDS: LIDOCAINE PATCH 5% 1 EA TP SCH (09:41)
--- NOTE | 2022-08-01 09:53 | NUR ---
Dr Bennett Ordered blood cultures, chest xray and to monitor for infections.
[2022-08-01] MEDS: FUROSEMIDE 20 MG/2 ML VIAL IVP SCH (09:56)
[2022-08-01] MEDS ORDERED: FLUCONAZOLE 200 mg/ NS 100 ML IV ONE (11:00)
[2022-08-01 12:00] VITALS: BP_SYST 148
--- NOTE | 2022-08-01 12:15 | NUR ---
PATIENT ROUNDS Patient resting in bed. Breathing even and unlabored, no pain, no sob, no distress noted at this time. All needs met, call light within reach, bed is locked in lowest position. Will continue to monitor.
--- NOTE | 2022-08-01 12:36 | NUR ---
IV DIFLUCAN ADMINISTERED LATE DUE TO NOT AVAILABLE FROM PHARMACY
--- NOTE | 2022-08-01 13:00 | NUR ---
MULTIPLE ATTEMPTS MADE TO SEE PATIENT FOR PT. FIRST ATTEMPT IN THE AM, PATIENT REQUESTED TO GET CHANGED BEFORE PT AND TO COMEBACK AFTER LUNCH. SECOND ATTEMPT IN PM, PATIENT REFUSED PATIENT STATING "I'M A MESS AND NOT TODAY".
[2022-08-01] MEDS: VANCOMYCIN HCL 1,250 MG in NS 250 ML IV SCH (13:24)
--- NOTE | 2022-08-01 13:24 | NUR ---
IV VANCO NOT SCANNING ON PATIENTS EMAR, VERIFIED DOSE BY 2 RNS
--- NOTE | 2022-08-01 15:09 | NUR ---
Pt. was seen for OT eval, cleared by nursing. Pls see OT eval form in chart for more details.
--- NOTE | 2022-08-01 15:30 | NUR ---
COLONOSCOPY Patient agreed to colonoscopy. Paged MD Mast for orders. Awaiting call back.
[2022-08-01 16:00] VITALS: BP_SYST 149
--- NOTE | 2022-08-01 17:35 | NUR ---
MD ANGLIN Spoke with MD Anglin regarding patients agreement to colonoscopy. gave new orders and asked for us to page GI doctor. I paged DR Beltre is premix operator concentrate and I am awaiting a call back for colonoscopy scheduling.
[2022-08-01] MEDS ORDERED: GOLYTELY / COLYTE SOLUTION 4 LITERS PO ONE (17:45)
[2022-08-01] MEDS: D5/0.45 NS 1,000 ML IV SCH (18:04)
--- NOTE | 2022-08-01 18:45 | NUR ---
CLOSING NOTE Received patient from nightshift nurse. Patient resting in bed A/O x 4 Wolof speaking. Breathing even and unlabored, no pain, no sob, no distress noted at this time. Patient has L upper arm PICC patent on d5 1/2 NS. Patient to be NPO after midnight. All needs met, call light within reach, bed is locked in lowest position. Will endorse to nightshift nurse.
--- NOTE | 2022-08-01 19:15 | NUR ---
OPENING NOTE REPORT RECEIVED FROM DAYSHIFT NURSE. PATIENT RECEIVED LYING IN BED, AWAKE, WATCHING TV, NO S/S OF ACUTE DISTRESS. BREATHING EVEN AND UNLABORED. IVF INFUSING WELL. IV SITE PATENT, NO SIGNS OF INFILTRATION OR INFECTION NOTED. CALL LIGHT WITH PATIENT. BED IS LOCKED AND AT LOWEST POSITION. BED ALARM ON. WILL CONTINUE TO MONITOR.
--- NOTE | 2022-08-01 19:40 | NUR ---
PAGED DR RICKY GIRALDO MD, TRYING TO GET ORDERS FOR COLONOSCOPY.
[2022-08-01 20:00] VITALS: BP_SYST 148
--- NOTE | 2022-08-01 20:00 | NUR ---
SPOKE TO DR MEHTA ORDERS GIVEN FOR COLONOSCOPY TOMORROW. STATED DR MUSE WILL BE COMING IN IN THE MORNING.
[2022-08-01] MEDS ORDERED: BISACODYL 5 MG TABLET.DR (DULCOLAX) PO ONE (20:30)
[2022-08-01] MEDS ORDERED: GOLYTELY / COLYTE SOLUTION 4 LITERS PO SCH (21:00)
[2022-08-01] MEDS ORDERED: METOCLOPRAMIDE HCL 10 MG/2 ML VIAL IVP PRN (22:00)
[2022-08-01] MEDS: METOCLOPRAMIDE HCL 10 MG/2 ML VIAL IVP PRN (22:15)
--- NOTE | 2022-08-01 23:00 | NUR ---
ROUNDS PATIENT IN BED, RESTING. NO SIGNS OF DISCOMFORT. CHEST RISE AND FALL EVEN BILATERALLY. CALL LIGHT WITH PATIENT. WILL CONTINUE TO MONITOR.
[2022-08-02] VITALS (7 sets, daily range): BP systolic 138–160
--- NOTE | 2022-08-02 00:30 | NUR ---
REFUSING GOLYTELY PATIENT HAS DRANK 2L OF GOLYTELY. PATIENT STATES HE HAS HAD ENOUGH. RN ENCOURAGING PATIENT, EDUCATED ON ITS IMPORTANCE TO FINISH GOLYTELY. WILL CONTINUE TO ENCOURAGE.
--- NOTE | 2022-08-02 00:49 | NUR ---
PT IS ON LAXATIVE PT IS ON BEDPAN EMPTY BEDPAN X1 PT STILL REQUESTED TO BE ON BED REHMAN EDUCATED PT ON REDNESS AND SKIN TEARS THAT CAN BE CAUSE FROM PROLONG TIMES ON BEDPAN PT STILL WANTS TO BE ON BEDPAN PT IS ALERT BEN ALVA
--- NOTE | 2022-08-02 01:30 | NUR ---
REFUSING GOLYTELY PATIENT REFUSING TO DRINK ANYMORE GOLYTELY AT THIS TIME. STATING "CLEVE HAD ENOUGH, I CANT DRINK ANYMORE". PATIENT EDUCATED ON ITS PURPOSE AND BENEFIT. WILL CONTINUE TO ENCOURAGE
[2022-08-02] MEDS ORDERED: GOLYTELY / COLYTE SOLUTION 4 LITERS PO SCH (02:00)
--- NOTE | 2022-08-02 03:00 | NUR ---
REFUSING GOLYTELY PATIENT ENCOURAGED AT THIS TIME TO DRINK MORE, PATIENT REFUSES DESPITE GETTING EDUCATED ON ITS PURPOSE. WILL CONTINUE TO ENCOURAGE
--- NOTE | 2022-08-02 04:55 | NUR ---
PT IS STILL ON BED REHMAN REMOVED TO EMPTY AND CHANGE PT AND PT REFUSED TO LEAVE BED REHMAN OFF BEN SPANGLER AWARE Addendum: 08/02/22 at 0529 by Zuri Ramos CNA EDUCATION WAS DONE
--- NOTE | 2022-08-02 05:00 | NUR ---
TAP WATER ENEMA PATIENT TOLERATED WELL, TAP WATER ENEMA DONE 3 TIMES, OUTPUT IS CLEAR, YELLOWISH, WITH LITTLE SEDIMENTS.
[2022-08-02] MEDS: METOCLOPRAMIDE HCL 10 MG/2 ML VIAL IVP PRN (05:01)
[2022-08-02] MEDS: LEVOTHYROXINE SODIUM 0.025 MG TABLET PO SCH (06:08)
--- NOTE | 2022-08-02 06:13 | NUR ---
CLOSING NOTE PATIENT IN BED, RESTING. NO S/S OF ACUTE DISTRESS. BREATHING EVEN AND UNLABORED. HOB RAISED. IV SITE IS PATENT, NO SIGNS OF INFILTRATION OR INFECTION NOTED. SKIN WARM AND DRY TO TOUCH. ALL NEEDS MET THROUGHOUT SHIFT. FALL, SAFETY PRECAUTIONS MAINTAINED THROUGHOUT SHIFT. WILL CONTINUE TO MONITOR UNTIL PATIENT CARE IS ENDORSED TO ONCOMING DAYSHIFT NURSE.
--- NOTE | 2022-08-02 07:09 | NUR ---
OPENING NOTE Received patient from nightshift nurse. Patient resting in bed A/O x 4 Setswana speaking. Breathing even and unlabored, no pain, no sob, no distress noted at this time. Patient has L upper arm PICC patent on d5 1/2 NS. Patient leaving to Colonscopy right now, will inform nephew as patients request. All needs met, call light within reach, bed is locked in lowest position. Will endorse continue to monitor.
[2022-08-02 07:27] LABS: BASOPHILS % (AUTO) 0.2 % (0.0-2.0); HEMATOCRIT 38.4 % (36-54); HEMOGLOBIN 13.2 g/dL (14.0-18.0); LYMPHOCYTES # (AUTO) 0.9 K/uL (1.0-5.5); LYMPHOCYTES % (AUTO) 5.8 % (20.5-51.5); MEAN CORPUSCULAR HEMOGLOBIN 30 pg (27-31); MEAN CORPUSCULAR HGB CONC 34 % (32-36); MEAN CORPUSCULAR VOLUME 88 fL (79.0-98.0); MONOCYTES # (AUTO) 1.2 K/uL (0.0-1.0); MONOCYTES % (AUTO) 7.9 % (1.7-9.3); NEUTROPHILS # (AUTO) 12.8 K/uL (1.8-7.7); NEUTROPHILS % (AUTO) 86.1 % (40.0-70.0); PLATELET COUNT (AUTO) 426 K/uL (130-430); RED BLOOD CELL COUNT(AUTO) 4.39 MIL/uL (4.2-6.2); RED CELL DISTRIBUTION WIDTH 14.4 % (9.0-15.0); WHITE BLOOD COUNT (AUTO) 14.9 K/uL (4.8-10.8)
--- NOTE | 2022-08-02 07:50 | NUR ---
FAMILY MEMEBER UPDATE Called patients family to update on colonoscopy as requested.
[2022-08-02 07:51] LABS: INR 1.1 (0.80-1.20); PROTHROMBIN TIME 11.9 SECS (9.5-12.5)
[2022-08-02] MEDS: SORBITOL 70% SOLUTION, 30 ML UDBTL PO SCH ×2 (09:00→20:34)
[2022-08-02] MEDS: POLYETHYLENE GLYCOL 3350, 17 GM/ POWD.PACK PO SCH (09:00)
[2022-08-02] MEDS: DOCUSATE SODIUM 250 MG CAPSULE PO SCH ×2 (09:00→20:34)
[2022-08-02] MEDS: MIDAZOLAM HCL 5 MG/5 ML VIAL ONE ×4 (09:25→09:36)
[2022-08-02] MEDS: fentaNYL CITRATE/PF 100 MCG/2 ML AMP ONE ×3 (09:25→09:33)
--- NOTE | 2022-08-02 10:17 | NUR ---
COLONOSCOPY Patient back from colonscopy. Vitals taken will administer medications as ordered.
[2022-08-02] MEDS: PANTOPRAZOLE SODIUM 40 MG TAB PO SCH (10:20)
[2022-08-02] MEDS: LIDOCAINE PATCH 5% 1 EA TP SCH (10:20)
[2022-08-02] MEDS: POTASSIUM CHLORIDE 20 MEQ/PKT PACKET PO SCH (10:21)
[2022-08-02] MEDS: THEOPHYLLINE ANHYDROUS 200 MG TAB.SR.12H PO SCH ×3 (10:21→20:37)
[2022-08-02] MEDS: amLODIPine BESYLATE 5 MG TABLET PO SCH (10:21)
[2022-08-02] MEDS: ENOXAPARIN SODIUM 40 MG/0.4 ML SYRINGE SUBCUT SCH (10:22)
[2022-08-02] MEDS: FUROSEMIDE 20 MG/2 ML VIAL IVP SCH (11:02)
[2022-08-02] MEDS: VANCOMYCIN HCL 1,250 MG in NS 250 ML IV SCH (12:12)
[2022-08-02] MEDS: D5/0.45 NS 1,000 ML IV SCH (13:45)
--- NOTE | 2022-08-02 14:13 | NUR ---
Gis Engineer HORSE GROOMER spoke to pts. Zhang shearer, [phone] who stated the only thing left on the DPOA is to have a notary come to the hospital on Saturday or Sat. Zhang stated Dr. Mast had said pt. cannot go home. HORSE GROOMER shared with Zhang Mast asked her to look into support at home if pt. were to be discharged home. KandaceZhang stated he did not know this and will wait for Dr. Mast to get results from todays colonoscopy and to hear what the plan of care is. HORSE GROOMER asked if there would be someone to help his uncle at home such as a hired home cargver. Zhang stated there is noone and is aware that pt. would need 24 hour care. pt. may need hospice care. Zhang stated that had been discussed at the time of admission because pt. had "been admitted on such bad shape" as per Zhang. HORSE GROOMER gave Zhang WM Lynnette's ext as she will not be in tomorrow.
[2022-08-02] MEDS: FLUCONAZOLE 200 mg/ NS 100 ML IV SCH (16:47)
--- NOTE | 2022-08-02 17:15 | NUR ---
Nutrition F/U: RDN reviewed pts current EMR including diet Hx, physician notes, nursing notes, pertinent labs, medications, procedures, care trends, and care activity. Shortened note d/t high RD workload Admission Dx: Sepsis, Mets prostate CA PMH: per EMR: 76-year-old gentleman who is known to have prostate cancer with metastasis presented with severe weakness and lethargy was found to have complete heart block PMHx: Dyslipidemia, Essential hypertension on beta-krystal last dose on Saturday morning, Radiation therapy S/p colonoscopy 08/02: large colon mass found Subjective information: Rd rounded to patient room and s/w patient at bedside. Patient was pleasant and stated he has been receiving Ensure, ice cream, and sherbert per previous RD discussion. Patient requested hot/herbal tea on breakfast tray and 7up or gingerale. Computrition updated. Per EMR, pt is s/p colonoscopy with 7 x BM 08/02. Per RD review, pt with 38% PO x 2 meals documented since 08/01. However pt attests to drinking Ensure TID. Current diet/Nutrition support: Full Liquid x 0 days Current % PO 38% x 2 meals = Improved; Poor Estimated Energy Expenditure (kcals/day) 3293-9233 kcal (30-35 kcal/kg IBW d/t BMI, mets CA) Estimated Protein Required (g/day) 100- 126 g (1.2-1.5 g/kg IBW d/t CA, BMI) Estimated Fluid Required (l/day) 2.5-2.9 L (1mL/kcal d/t maintenance) Problem/Etiology/Signs/Symptoms * Risk for malnutrition R/T catabolic illness AEB estimated nutritional needs for CA/wt gain promotion, BMI: 18.3 kg/m2. *Ongoing Expected Outcomes/Goals PO intake provides >85% estimated nutrient needs, nutrition-related labs trending WNL, continued skin integrity, BM q1-3 days Dietitian Recommendations * Recommend advance to Regular diet, Ensure TID, Prosource BID (Supplements yield 1170 kcals, 90g protein) * Monitor PO intake and patient food preferences Follow Up High Risk: F/U in 2-3 days
--- NOTE | 2022-08-02 17:15 | NUR ---
Dietitian Recommendations * Recommend advance to Regular diet, Ensure TID, Prosource BID (Supplements yield 1170 kcals, 90g protein) * Monitor PO intake and patient food preferences Please refer to nutrition f/u for details, thanks! Bronwyn Ramos MPH, RDN
--- NOTE | 2022-08-02 19:00 | NUR ---
CLOSING NOTE Patient resting in bed A/O x 4 Bahamian speaking. Breathing even and unlabored, no pain, no sob, no distress noted at this time. Patient has L upper arm PICC patent on d5 1/2 NS. All needs met, call light within reach, bed is locked in lowest position. Will endorse to nightshift nurse.
--- NOTE | 2022-08-02 19:15 | NUR ---
OPENING NOTE REPORT RECEIVED FROM DAYSHIFT NURSE. PATIENT RECEIVED LYING IN BED, RESTING. NO S/S OF ACUTE DISTRESS. BREATHING EVEN AND UNLABORED. IVF INFUSING WELL, IV SITE PATENT, NO SIGNS OF INFILTRATION OR INFECTION NOTED. SKIN WARM AND DRY TO TOUCH. CALL LIGHT WITH PATIENT. BED ALARM ON. BED IS LOCKED AND AT LOWEST POSITION. WILL CONTINUE TO MONITOR.
[2022-08-02] MEDS: HYDROcodone/ACETAMIN 5-325 MG TAB (NORCO/ VICODIN) PO PRN (20:37)
--- NOTE | 2022-08-02 23:00 | NUR ---
ROUNDS PATIENT IN BED, RESTING. NO SIGNS OF DISCOMFORT. CHEST RISE AND FALL EVEN BILATERALLY. ALL NEEDS MET. CALL LIGHT WITH PATIENT. WILL MONITOR.
[2022-08-03] VITALS: BP_SYST 148
[2022-08-03] MEDS: HYDROcodone/ACETAMIN 5-325 MG TAB (NORCO/ VICODIN) PO PRN ×3 (01:34→21:50)
[2022-08-03] MEDS: LEVOTHYROXINE SODIUM 0.025 MG TABLET PO SCH (06:13)
--- NOTE | 2022-08-03 06:47 | NUR ---
CLOSING NOTE PATIENT IN BED, RESTING. NO S/S OF ACUTE DISTRESS. BREATHING EVEN AND UNLABORED. IVF INFUSING WELL, IV SITE PATENT, NO SIGNS OF INFILTRATION OR INFECTION NOTED. ALL NEEDS MET THROUGHOUT SHIFT. FALL, SAFETY PRECAUTIONS MAINTAINED THROUGHOUT SHIFT. WILL CONTINUE TO MONITOR UNTIL PATIENT CARE IS ENDORSED TO ONCOMING DAYSHIFT NURSE.
--- NOTE | 2022-08-03 07:10 | NUR ---
PHYSICAL THERAPY CO-SIGN The Physical Therapy Progress Notes documented by Amusement Ride Inspector have been reviewed. Reviewed/Co-Signed by: Fadi Figueroa Documentation Done by: SARANYA GOMEZ PTA Addendum: 08/03/22 at 0711 by Fadi Figueroa PT Amended: Links added.
[2022-08-03 08:00] VITALS: BP_SYST 155
[2022-08-03] MEDS: POTASSIUM CHLORIDE 20 MEQ/PKT PACKET PO SCH (08:19)
[2022-08-03] MEDS: THEOPHYLLINE ANHYDROUS 200 MG TAB.SR.12H PO SCH ×3 (08:19→21:00)
[2022-08-03] MEDS: ENOXAPARIN SODIUM 40 MG/0.4 ML SYRINGE SUBCUT SCH (08:19)
[2022-08-03] MEDS: PANTOPRAZOLE SODIUM 40 MG TAB PO SCH (08:19)
[2022-08-03] MEDS: LIDOCAINE PATCH 5% 1 EA TP SCH (08:19)
[2022-08-03] MEDS: POLYETHYLENE GLYCOL 3350, 17 GM/ POWD.PACK PO SCH (08:20)
[2022-08-03] MEDS: SORBITOL 70% SOLUTION, 30 ML UDBTL PO SCH ×2 (08:20→21:52)
[2022-08-03] MEDS: DOCUSATE SODIUM 250 MG CAPSULE PO SCH ×2 (08:20→21:00)
[2022-08-03] MEDS: amLODIPine BESYLATE 5 MG TABLET PO SCH (08:23)
[2022-08-03] MEDS: FUROSEMIDE 20 MG/2 ML VIAL IVP SCH (10:25)
[2022-08-03] MEDS: D5/0.45 NS 1,000 ML IV SCH (11:02)
[2022-08-03 11:34] VITALS: BP_SYST 140
[2022-08-03] MEDS: VANCOMYCIN HCL 1,250 MG in NS 250 ML IV SCH (11:36)
[2022-08-03] MEDS ORDERED: cefTRIAXone 1 GM in D5W 50 ML IV SCH (13:00)
[2022-08-03 16:52] VITALS: BP_SYST 153
[2022-08-03] MEDS: FLUCONAZOLE 200 mg/ NS 100 ML IV SCH (16:59)
[2022-08-03 21:02] VITALS: BP_SYST 149
[2022-08-04 00:55] VITALS: BP_SYST 146
[2022-08-04] MEDS: HYDROcodone/ACETAMIN 5-325 MG TAB (NORCO/ VICODIN) PO PRN ×4 (05:13→13:30)
[2022-08-04] MEDS: LEVOTHYROXINE SODIUM 0.025 MG TABLET PO SCH (06:54)
[2022-08-04] MEDS: D5/0.45 NS 1,000 ML IV SCH ×2 (06:56→14:51)
[2022-08-04 08:00] VITALS: BP_SYST 125
--- NOTE | 2022-08-04 08:00 | NUR ---
OPENING NOTE Patient in bed resting, no sign of distress and denies pain at this time. Patient updated on his plan of care, verbalized understanding. Breathing is nonlabored and even on room air. Comfort measures provided. All needs met at this time and safety checks made.
[2022-08-04 08:15] LABS: BASOPHILS # (AUTO) 0.1 K/uL (0.0-0.2); BASOPHILS % (AUTO) 0.7 % (0.0-2.0); EOSINOPHILS # (AUTO) 0.1 K/uL (0.0-0.4); EOSINOPHILS % (AUTO) 1.1 % (0.0-4.0); HEMATOCRIT 37.6 % (36-54); HEMOGLOBIN 12.6 g/dL (14.0-18.0); LYMPHOCYTES # (AUTO) 1.4 K/uL (1.0-5.5); LYMPHOCYTES % (AUTO) 10.2 % (20.5-51.5); MEAN CORPUSCULAR HEMOGLOBIN 30 pg (27-31); MEAN CORPUSCULAR HGB CONC 34 % (32-36); MEAN CORPUSCULAR VOLUME 88 fL (79.0-98.0); MONOCYTES # (AUTO) 1.4 K/uL (0.0-1.0); MONOCYTES % (AUTO) 10.2 % (1.7-9.3); NEUTROPHILS # (AUTO) 10.5 K/uL (1.8-7.7); NEUTROPHILS % (AUTO) 77.8 % (40.0-70.0); PLATELET COUNT (AUTO) 402 K/uL (130-430); RED BLOOD CELL COUNT(AUTO) 4.26 MIL/uL (4.2-6.2); RED CELL DISTRIBUTION WIDTH 14.5 % (9.0-15.0); WHITE BLOOD COUNT (AUTO) 13.5 K/uL (4.8-10.8)
[2022-08-04 08:24] LABS: ANION GAP 10 (5-15); CALCIUM 8.3 mg/dL (8.4-11.0); CHLORIDE 107 mmol/L (98-107); CREATININE 0.68 mg/dL (0.55-1.30); GLUCOSE 89 mg/dL (70-99); UREA NITROGEN, BLOOD 16 mg/dL (8-21)
[2022-08-04] MEDS: POLYETHYLENE GLYCOL 3350, 17 GM/ POWD.PACK PO SCH (09:00)
[2022-08-04] MEDS: SORBITOL 70% SOLUTION, 30 ML UDBTL PO SCH ×2 (09:00→21:00)
[2022-08-04] MEDS: LIDOCAINE PATCH 5% 1 EA TP SCH (09:35)
[2022-08-04] MEDS: ENOXAPARIN SODIUM 40 MG/0.4 ML SYRINGE SUBCUT SCH (09:36)
[2022-08-04] MEDS: amLODIPine BESYLATE 5 MG TABLET PO SCH (09:37)
[2022-08-04] MEDS: POTASSIUM CHLORIDE 20 MEQ/PKT PACKET PO SCH (09:37)
[2022-08-04] MEDS: PANTOPRAZOLE SODIUM 40 MG TAB PO SCH (09:37)
[2022-08-04] MEDS: DOCUSATE SODIUM 250 MG CAPSULE PO SCH ×2 (09:40→21:00)
[2022-08-04] MEDS: THEOPHYLLINE ANHYDROUS 200 MG TAB.SR.12H PO SCH ×3 (10:41→21:16)
[2022-08-04] MEDS ORDERED: VANCOMYCIN HCL 1,000 MG in NS 250 ML IV SCH (11:00)
[2022-08-04] MEDS: FUROSEMIDE 20 MG/2 ML VIAL IVP SCH (11:28)
[2022-08-04 11:37] LABS: ERYTHROCYTE SEDIMENTATION RATE 83 MM/HR (0-15)
--- NOTE | 2022-08-04 14:00 | NUR ---
PATIENT SPEAKING WITH NAPHTHALENE OPERATOR Patient concerned about his diet, able to have Gaby from dietary speak with the patient and address concerns. Patient's diet preferences updated. All needs met at this time.
[2022-08-04 16:12] VITALS: BP_SYST 148
[2022-08-04] MEDS: FLUCONAZOLE 200 mg/ NS 100 ML IV SCH (17:33)
--- NOTE | 2022-08-04 18:59 | NUR ---
CLOSING NOTE Patient in bed resting, no sign of distress. Patient complaining of consistent pain in the abdomen, MD aware. Patient has been updated on his plan of care, verbalized understanding. Comfort measures provided throughout the shift. All needs met at this time and safety checks made. Will endorse to shift commander nurse.
[2022-08-04 20:34] VITALS: BP_SYST 155
[2022-08-04] MEDS: HYDROcodone/ACETAMIN 10-325 MG TAB PO PRN (21:19)
[2022-08-05] MEDS: HYDROcodone/ACETAMIN 10-325 MG TAB PO PRN ×3 (02:58→20:52)
[2022-08-05] MEDS: LEVOTHYROXINE SODIUM 0.025 MG TABLET PO SCH (06:12)
--- NOTE | 2022-08-05 06:21 | NUR ---
Pt. needs met this shift, vss, medicated for abd. pain as needed with good results. PICC dressing change done, pt. tolerated well. Call light in reach, no distress, sleeping
[2022-08-05] MEDS: POTASSIUM CHLORIDE 20 MEQ/PKT PACKET PO SCH (08:58)
[2022-08-05] MEDS: amLODIPine BESYLATE 5 MG TABLET PO SCH (09:07)
[2022-08-05] MEDS: SORBITOL 70% SOLUTION, 30 ML UDBTL PO SCH ×2 (09:10→21:00)
[2022-08-05] MEDS: POLYETHYLENE GLYCOL 3350, 17 GM/ POWD.PACK PO SCH (09:10)
[2022-08-05] MEDS: DOCUSATE SODIUM 250 MG CAPSULE PO SCH ×2 (09:10→20:52)
[2022-08-05] MEDS: ENOXAPARIN SODIUM 40 MG/0.4 ML SYRINGE SUBCUT SCH (09:10)
[2022-08-05] MEDS: PANTOPRAZOLE SODIUM 40 MG TAB PO SCH (09:10)
[2022-08-05] MEDS: FUROSEMIDE 20 MG/2 ML VIAL IVP SCH (09:10)
[2022-08-05] MEDS: THEOPHYLLINE ANHYDROUS 200 MG TAB.SR.12H PO SCH ×3 (09:10→21:00)
[2022-08-05] MEDS: LIDOCAINE PATCH 5% 1 EA TP SCH (09:11)
[2022-08-05 11:28] VITALS: BP_SYST 140
[2022-08-05 16:06] VITALS: BP_SYST 162
[2022-08-05] MEDS: FLUCONAZOLE 200 mg/ NS 100 ML IV SCH (17:30)
[2022-08-05] MEDS: hydrALAZINE HCL 20 MG/ML VIAL IVP PRN (17:30)
[2022-08-05 20:00] VITALS: BP_SYST 138
[2022-08-05] MEDS: D5/0.45 NS 1,000 ML IV SCH (21:45)
[2022-08-06 04:00] VITALS: BP_SYST 145
--- NOTE | 2022-08-06 06:00 | NUR ---
Consultation Paged Reason for Consultation: Mediport Placement for Chemotherapy Was consult called: Y Person who was notified: Laurel Consulting Physician: Dr. Keith Ordering Physician: Jordan Fuller
[2022-08-06] MEDS: LEVOTHYROXINE SODIUM 0.025 MG TABLET PO SCH (06:22)
[2022-08-06 06:50] LABS: BASOPHILS # (AUTO) 0.1 K/uL (0.0-0.2); BASOPHILS % (AUTO) 0.4 % (0.0-2.0); EOSINOPHILS # (AUTO) 0.1 K/uL (0.0-0.4); EOSINOPHILS % (AUTO) 0.9 % (0.0-4.0); HEMATOCRIT 36.8 % (36-54); HEMOGLOBIN 12.5 g/dL (14.0-18.0); LYMPHOCYTES # (AUTO) 0.9 K/uL (1.0-5.5); LYMPHOCYTES % (AUTO) 6.8 % (20.5-51.5); MEAN CORPUSCULAR HEMOGLOBIN 30 pg (27-31); MEAN CORPUSCULAR HGB CONC 34 % (32-36); MEAN CORPUSCULAR VOLUME 88 fL (79.0-98.0); MONOCYTES % (AUTO) 7.5 % (1.7-9.3); NEUTROPHILS # (AUTO) 11.3 K/uL (1.8-7.7); NEUTROPHILS % (AUTO) 84.4 % (40.0-70.0); PLATELET COUNT (AUTO) 395 K/uL (130-430); RED BLOOD CELL COUNT(AUTO) 4.18 MIL/uL (4.2-6.2); RED CELL DISTRIBUTION WIDTH 15.2 % (9.0-15.0); WHITE BLOOD COUNT (AUTO) 13.4 K/uL (4.8-10.8)
--- NOTE | 2022-08-06 07:45 | NUR ---
PHYSICAL THERAPY CO-SIGN The Physical Therapy Progress Notes documented by Rail Signal Mechanic have been reviewed. Reviewed/Co-Signed by: Fadi Figueroa Documentation Done by: SARANYA GOMEZ PTA Addendum: 08/06/22 at 0746 by Fadi Figueroa PT Amended: Links added.
--- NOTE | 2022-08-06 07:55 | NUR ---
report to oncoming rn. vital signs remained stable and afebrile call light in reach. side rails up. thru out this shift. was medicated x 1 for pain. with relief of pain.
[2022-08-06 08:13] LABS: ALANINE AMINOTRANSFERASE 40 U/L (12-78); ALBUMIN 1.8 g/dL (3.4-4.8); ANION GAP 11 (5-15); ASPARTATE AMINOTRANSFERASE 58 U/L (10-37); CHLORIDE 106 mmol/L (98-107); CREATININE 0.59 mg/dL (0.55-1.30); GLUCOSE 95 mg/dL (70-99); TOTAL BILIRUBIN 0.6 mg/dL (0.0-1.0); UREA NITROGEN, BLOOD 17 mg/dL (8-21)
[2022-08-06] MEDS: PANTOPRAZOLE SODIUM 40 MG TAB PO SCH (09:42)
[2022-08-06] MEDS: HYDROcodone/ACETAMIN 10-325 MG TAB PO PRN ×2 (09:42→18:47)
[2022-08-06] MEDS: amLODIPine BESYLATE 5 MG TABLET PO SCH (09:43)
[2022-08-06] MEDS: DOCUSATE SODIUM 250 MG CAPSULE PO SCH ×2 (09:43→22:58)
[2022-08-06] MEDS: FUROSEMIDE 20 MG/2 ML VIAL IVP SCH (09:44)
[2022-08-06] MEDS: POTASSIUM CHLORIDE 20 MEQ/PKT PACKET PO SCH (09:44)
[2022-08-06 09:55] VITALS: BP_SYST 136
--- NOTE | 2022-08-06 11:04 | NUR ---
MAX ENCOURAGEMENT GIVEN TO PATIENT FOR PT PARTICIPATION. HOWEVER, PATIENT REFUSED STATING HE IS FEELING TOO WEAK AND THAT "THEY GAVE ME THE WRONG DIET". PATIENT ALSO REFUSED EXERCISES IN BED.
[2022-08-06 11:34] VITALS: BP_SYST 149
[2022-08-06] MEDS: POLYETHYLENE GLYCOL 3350, 17 GM/ POWD.PACK PO SCH (11:51)
[2022-08-06] MEDS: THEOPHYLLINE ANHYDROUS 200 MG TAB.SR.12H PO SCH ×3 (11:52→21:00)
[2022-08-06] MEDS: ENOXAPARIN SODIUM 40 MG/0.4 ML SYRINGE SUBCUT SCH (11:52)
[2022-08-06] MEDS: SORBITOL 70% SOLUTION, 30 ML UDBTL PO SCH ×2 (11:53→21:00)
[2022-08-06] MEDS: LIDOCAINE PATCH 5% 1 EA TP SCH (11:54)
[2022-08-06] MEDS: D5/0.45 NS 1,000 ML IV SCH (12:04)
[2022-08-06 15:35] VITALS: BP_SYST 151
[2022-08-06 16:00] VITALS: BP_SYST 141
[2022-08-06] MEDS: FLUCONAZOLE 200 mg/ NS 100 ML IV SCH (17:50)
[2022-08-06 20:00] VITALS: BP_SYST 149
--- NOTE | 2022-08-06 20:00 | NUR ---
SPOKE TO DIETITIAN REGARDING DIET: RECOMMEND- GI SOFT TO ADVANCE OF OK WITH SURGEON OR GI DOCTOR. WILL ENDORSE TO DAY SHIFT NURSE .PATIENT IS AWAKE ALERT, NO C/O ABD PAIN AT THIS TIME. NO DISTRESS. CALL LIGHT WITHIN REACH, INSTRUCT PATIENT TO CALL FOR CERTIFIED OPHTHALMIC TECHNOLOGIST.
--- NOTE | 2022-08-06 20:06 | NUR ---
Nutrition F/U: RDN reviewed pts current EMR including diet Hx, physician notes, nursing notes, pertinent labs, medications, procedures, care trends, and care activity. Shortened note d/t high RD workload Admission Dx: Sepsis, Mets prostate CA PMH: per EMR: 76-year-old gentleman who is known to have prostate cancer with metastasis presented with severe weakness and lethargy was found to have complete heart block PMHx: Dyslipidemia, Essential hypertension on beta-krystal last dose on Saturday morning, Radiation therapy S S/p colonoscopy 08/02: large colon mass found Subjective information: RD (Angelica) rounded to patient room and s/w patient and family member at bedside. Pt is still receiving a full liquid diet although he is ready for it to advance to regular. Per EMR, pt was found with a near complete colon mass obstruction. Angelica unable to s/w RN or MD prior to leaving for the day. RD met with night RN and discussed pt current diet and nutrition plans. Per EMR, RD has not found MD plans for nutrition advancement and/or nutrition support. RD encourages diet advancement for increased quality of life for patient w/ poor prognosis. Current diet/Nutrition support: Full Liquid x 3 days Current % PO 56% x 9 meals = Improved; Fair Estimated Energy Expenditure (kcals/day) 2974-2567 kcal (30-35 kcal/kg IBW d/t BMI, mets CA) Estimated Protein Required (g/day) 100- 126 g (1.2-1.5 g/kg IBW d/t CA, BMI) Estimated Fluid Required (l/day) 2.5-2.9 L (1mL/kcal d/t maintenance) Problem/Etiology/Signs/Symptoms * Risk for malnutrition R/T catabolic illness AEB estimated nutritional needs for CA/wt gain promotion, BMI: 18.3 kg/m2. *Ongoing Expected Outcomes/Goals PO intake provides >85% estimated nutrient needs, nutrition-related labs trending WNL, continued skin integrity, BM q1-3 days Dietitian Recommendations * Recommend advance diet: GI soft -> Regular, Ensure TID, Prosource BID (Supplements yield 1170 kcals, 90g protein) * Monitor PO intake and patient food preferences * Recommend continued liberalized diet order for better patient quality of life Follow Up High Risk: F/U in 2-3 days
--- NOTE | 2022-08-06 20:08 | NUR ---
Dietitian Recommendations * Recommend advance diet: GI soft -> Regular * Continue Ensure TID, Prosource BID (Supplements yield 1170 kcals, 90g protein) * Monitor PO intake and patient food preferences * Recommend continued liberalized diet order for better patient quality of life Please refer to nutrition f/u for details, thanks! Bronwyn Ramos MPH, RDN
--- NOTE | 2022-08-07 00:30 | NUR ---
PATIENT ABLE TO USE URINAL , SOME LEAKING URINE AT THE PADS , GOOD SKIN CARE GIVEN BY BIOMASS BOILER OPERATOR AND CHANGED LINES AND GOWN. CALL LIGHT WITHIN REACH.
[2022-08-07 01:11] VITALS: BP_SYST 159
[2022-08-07] MEDS: HYDROcodone/ACETAMIN 10-325 MG TAB PO PRN ×3 (03:38→21:19)
--- NOTE | 2022-08-07 04:24 | NUR ---
NORCO 10MG PO GIVEN FOR HIS ABD PAIN 03/14 , CALL LIGHT WITHIN REACH.
[2022-08-07] MEDS: LEVOTHYROXINE SODIUM 0.025 MG TABLET PO SCH (06:33)
[2022-08-07 07:14] LABS: BASOPHILS # (AUTO) 0.1 K/uL (0.0-0.2); BASOPHILS % (AUTO) 0.7 % (0.0-2.0); EOSINOPHILS # (AUTO) 0.1 K/uL (0.0-0.4); HEMATOCRIT 36.3 % (36-54); HEMOGLOBIN 12.2 g/dL (14.0-18.0); LYMPHOCYTES # (AUTO) 0.9 K/uL (1.0-5.5); LYMPHOCYTES % (AUTO) 7.7 % (20.5-51.5); MEAN CORPUSCULAR HEMOGLOBIN 30 pg (27-31); MEAN CORPUSCULAR HGB CONC 34 % (32-36); MEAN CORPUSCULAR VOLUME 89 fL (79.0-98.0); MONOCYTES # (AUTO) 1.3 K/uL (0.0-1.0); MONOCYTES % (AUTO) 10.7 % (1.7-9.3); NEUTROPHILS # (AUTO) 9.6 K/uL (1.8-7.7); NEUTROPHILS % (AUTO) 79.9 % (40.0-70.0); PLATELET COUNT (AUTO) 398 K/uL (130-430); RED CELL DISTRIBUTION WIDTH 14.9 % (9.0-15.0)
[2022-08-07 07:18] LABS: ANION GAP 11 (5-15); C-REACTIVE PROTEIN QUANT 15.7 mg/dL (0-0.5); CALCIUM 8.2 mg/dL (8.4-11.0); CHLORIDE 105 mmol/L (98-107); CREATININE 0.54 mg/dL (0.55-1.30); GLUCOSE 96 mg/dL (70-99); UREA NITROGEN, BLOOD 14 mg/dL (8-21)
[2022-08-07 08:57] VITALS: BP_SYST 164
[2022-08-07] MEDS: LIDOCAINE PATCH 5% 1 EA TP SCH (09:11)
[2022-08-07] MEDS: POTASSIUM CHLORIDE 20 MEQ/PKT PACKET PO SCH (09:11)
[2022-08-07] MEDS: ENOXAPARIN SODIUM 40 MG/0.4 ML SYRINGE SUBCUT SCH (09:11)
[2022-08-07] MEDS: SORBITOL 70% SOLUTION, 30 ML UDBTL PO SCH ×2 (09:11→21:00)
[2022-08-07] MEDS: FUROSEMIDE 20 MG/2 ML VIAL IVP SCH (09:12)
[2022-08-07] MEDS: POLYETHYLENE GLYCOL 3350, 17 GM/ POWD.PACK PO SCH (09:12)
[2022-08-07] MEDS: PANTOPRAZOLE SODIUM 40 MG TAB PO SCH (09:13)
[2022-08-07] MEDS: THEOPHYLLINE ANHYDROUS 200 MG TAB.SR.12H PO SCH ×3 (09:13→21:17)
[2022-08-07] MEDS: DOCUSATE SODIUM 250 MG CAPSULE PO SCH ×2 (09:14→21:00)
[2022-08-07] MEDS: amLODIPine BESYLATE 5 MG TABLET PO SCH (09:15)
[2022-08-07 10:15] LABS: ERYTHROCYTE SEDIMENTATION RATE 85 MM/HR (0-15)
[2022-08-07 11:43] VITALS: BP_SYST 150
[2022-08-07] MEDS: D5/0.45 NS 1,000 ML IV SCH (13:58)
[2022-08-07 15:44] VITALS: BP_SYST 143
--- NOTE | 2022-08-07 16:15 | NUR ---
HOSPICE EVAL/CDL DRIVER ACSW Mone responded to a Hospice Eval. ACSW Mone attempted to meet with patient at bedside, but patient was sleeping. ACSW contacted patient's nephew Kwadwo , ACSW provided brief explanation of hospice eval order and services. ACSW encouraged patient discuss concerns, questions etc directly with hospice provider, and provided continued reassurance that talking with hospice provider is not committing/consenting to services. Kwadwo expressed wanting to discuss with patient further, but approved providing documentation to [facility] for review ACSSanya Mone faxed packet for review to [facility] P: and informed them to not contact family at this time. PLAN: Kwadwo and patient will discuss further and provide update to Scientific Associate so [place] can be updated as well Scientific Associate will continue to be available as needed
[2022-08-07] MEDS: FLUCONAZOLE 200 mg/ NS 100 ML IV SCH (16:50)
[2022-08-07 17:01] VITALS: BP_SYST 142
--- NOTE | 2022-08-07 19:15 | NUR ---
OPENING NOTE REPORT RECEIVED FROM DAYSHIFT NURSE. PATIENT RECEIVED LYING IN BED, RESTING. NO S/S OF ACUTE DISTRESS. BREATHING EVEN AND UNLABORED. IVF INFUSING WELL, IV SITE PATENT, NO SIGNS OF INFILTRATION OR INFECTION NOTED. CALL LIGHT WITH PATIENT. BED ALARM ON. BED IS LOCKED AND AT LOWEST POSITION. WILL CONTINUE TO MONITOR.
[2022-08-07 20:00] VITALS: BP_SYST 149
--- NOTE | 2022-08-07 23:00 | NUR ---
ROUNDS PATIENT IN BED, RESTING. NO SIGNS OF DISCOMFORT. CHEST RISE AND FALL EVEN BILATERALLY. ALL NEEDS MET. WILL MONITOR.
[2022-08-08 00:38] VITALS: BP_SYST 136
[2022-08-08] MEDS: HYDROcodone/ACETAMIN 10-325 MG TAB PO PRN ×3 (03:25→21:23)
[2022-08-08] MEDS: LEVOTHYROXINE SODIUM 0.025 MG TABLET PO SCH (06:12)
--- NOTE | 2022-08-08 06:52 | NUR ---
CLOSING NOTE PATIENT IN BED, RESTING. NO S/S OF ACUTE DISTRESS. ALL NEEDS MET THROUGHOUT SHIFT. FALL, SAFETY PRECAUTIONS MAINTAINED THROUGHOUT SHIFT. WILL CONTINUE TO MONITOR UNTIL PATIENT CARE IS ENDORSED TO ONCOMING DAYSHIFT NURSE.
--- NOTE | 2022-08-08 07:41 | NUR ---
PHYSICAL THERAPY CO-SIGN The Physical Therapy Progress Notes documented by Roving Changer have been reviewed. Reviewed/Co-Signed by: Fadi Figueroa Documentation Done by: SARANYA GOMEZ PTA Addendum: 08/08/22 at 0741 by Fadi Figueroa PT Amended: Links added.
[2022-08-08 08:22] VITALS: BP_SYST 140
[2022-08-08] MEDS: FUROSEMIDE 20 MG/2 ML VIAL IVP SCH (10:30)
[2022-08-08] MEDS: PANTOPRAZOLE SODIUM 40 MG TAB PO SCH (10:30)
[2022-08-08] MEDS: DOCUSATE SODIUM 250 MG CAPSULE PO SCH ×2 (10:31→21:00)
[2022-08-08] MEDS: LIDOCAINE PATCH 5% 1 EA TP SCH (10:33)
[2022-08-08] MEDS: ENOXAPARIN SODIUM 40 MG/0.4 ML SYRINGE SUBCUT SCH (10:33)
[2022-08-08] MEDS: amLODIPine BESYLATE 5 MG TABLET PO SCH (10:33)
[2022-08-08] MEDS: POLYETHYLENE GLYCOL 3350, 17 GM/ POWD.PACK PO SCH (10:34)
[2022-08-08] MEDS: SORBITOL 70% SOLUTION, 30 ML UDBTL PO SCH ×2 (10:34→21:00)
[2022-08-08] MEDS: THEOPHYLLINE ANHYDROUS 200 MG TAB.SR.12H PO SCH ×3 (10:34→21:11)
[2022-08-08] MEDS: POTASSIUM CHLORIDE 20 MEQ/PKT PACKET PO SCH (10:35)
[2022-08-08 11:30] VITALS: BP_SYST 139
--- NOTE | 2022-08-08 11:30 | NUR ---
MAINTENANCE SHOP WELDER ELENA Shore met with patient and his nephew Kwadwo Bal at bedside. Patient expressed his desire to move forward with hospice services. Both the patient and nephew shared patient resides alone and could not return there for hospice nor were family members homes an option. ACSW provided brief explanation of insurance coverage related to hospice and placement ad encouraged them to discuss this further with Hospice Staff. ACSW contacted [facility] to inform them family would like to move forward. ACSW also informed them patient and family is requesting to speak to hospice rep in person. As [facility] by patient and family[facility] faces[facility] and application to [employer] P: in an effort to obtain [employer] for patient. Computer Numerical Control Operator will continue to be available as needed Addendum: 08/08/22 at 1504 by Mone Parada MSW ELENA Shore received call back from [facility] stating patient and family want hospice services but want placement as they shared there is not a home placement available at this time. [facility] informed him of [employer] application.
[2022-08-08] MEDS: D5/0.45 NS 1,000 ML IV SCH (14:59)
[2022-08-08 16:33] VITALS: BP_SYST 144
[2022-08-08 20:00] VITALS: BP_SYST 164
--- NOTE | 2022-08-08 21:00 | NUR ---
Opening note-received pt in bed. pt awake and oriented. c/c generalized weakness. v/s stable afebrile. HR 87 bpm.IVF D51/2NS at 50 ml/hr via Left upper arm double lumen PICC line- dressing intact. Pt refused Colace and Sorbitol. Encouraged to take med but pt refused. Last BM was 08/07. will monitor bm. Continent of urine- uses urinal.
[2022-08-09] VITALS (7 sets, daily range): BP systolic 135–158
[2022-08-09] MEDS: LEVOTHYROXINE SODIUM 0.025 MG TABLET PO SCH (06:02)
--- NOTE | 2022-08-09 06:10 | NUR ---
Closing note-pt remains stable. Pt has poor intake. Encouraged oral intake. Blanchable redness on bilateral buttock. Applied Mepilex Foam dressing and encouraged pt to turn. Given Adair 10-325 1 tab po for LLQ pain but pt c/o upset stomach. No BM.
--- NOTE | 2022-08-09 07:45 | NUR ---
PHYSICAL THERAPY CO-SIGN The Physical Therapy Progress Notes documented by Dairy Powder Mixer Operator have been reviewed. Reviewed/Co-Signed by: Fadi Figueroa Documentation Done by: SARANYA GOMEZ PTA Addendum: 08/09/22 at 0746 by Fadi Figueroa PT Amended: Links added.
[2022-08-09] MEDS: SORBITOL 70% SOLUTION, 30 ML UDBTL PO SCH ×2 (10:11→20:20)
[2022-08-09] MEDS: PANTOPRAZOLE SODIUM 40 MG TAB PO SCH (10:12)
[2022-08-09] MEDS: FUROSEMIDE 20 MG/2 ML VIAL IVP SCH (10:12)
[2022-08-09] MEDS: amLODIPine BESYLATE 5 MG TABLET PO SCH (10:14)
[2022-08-09] MEDS: ENOXAPARIN SODIUM 40 MG/0.4 ML SYRINGE SUBCUT SCH (10:14)
[2022-08-09] MEDS: THEOPHYLLINE ANHYDROUS 200 MG TAB.SR.12H PO SCH ×3 (10:15→20:20)
[2022-08-09] MEDS: DOCUSATE SODIUM 250 MG CAPSULE PO SCH ×2 (10:15→20:20)
[2022-08-09] MEDS: LIDOCAINE PATCH 5% 1 EA TP SCH (10:16)
[2022-08-09] MEDS: POLYETHYLENE GLYCOL 3350, 17 GM/ POWD.PACK PO SCH (10:16)
[2022-08-09] MEDS: POTASSIUM CHLORIDE 20 MEQ/PKT PACKET PO SCH (10:16)
[2022-08-09] MEDS ORDERED: NALOXONE HCL 0.4 MG/ML AMP (NARCAN) IVP PRN (11:30)
--- NOTE | 2022-08-09 11:33 | NUR ---
PATIENT IS UNAVAILABLE FOR PT TODAY PATIENT KEEPS THROWING UP AND IS REQUESTING FOR PAIN MEDICATION.
--- NOTE | 2022-08-09 11:45 | NUR ---
DR. SEVILLA CALLED BACK AND UPDATED ON THE PATIENT'S CONDITION. PATIENT CONTINUES TO THROW UP, SMALL WHITISH SPIT ESPECIALLY AFTER TAKING PO MEDS. PATIENT TAKES PILLS ONE TAB AT A TIME WITH SIP OF WATER BUT STILL GAGS. RECEIVED ORDER FOR ZOFRAN IV AND MORPHINE IV FOR PAIN. ORDER MADE, NOTED, AND CARRIED OUT.
--- NOTE | 2022-08-09 12:51 | NUR ---
INDUSTRIAL SERVICER ACSW Mone contacted Reji with [employer] to obtain update on patient's [employer] application. He shared there is no update at this time but he will be contacting patient's contacts today.
[2022-08-09] MEDS: MORPHINE 2 MG/ML INJ. SYRINGE IVP PRN ×2 (12:52→20:19)
[2022-08-09] MEDS: ONDANSETRON HCL 4 MG/2 ML VIAL IM PRN ×2 (12:52→20:18)
[2022-08-09] MEDS: D5/0.45 NS 1,000 ML IV SCH (12:53)
--- NOTE | 2022-08-09 20:00 | NUR ---
Received pt in bed. C/o pain and given Morhphine2 m ivp. V/s stable afebrile. HR 103 bpm.
[2022-08-10] VITALS (7 sets, daily range): BP systolic 139–162
--- NOTE | 2022-08-10 05:24 | NUR ---
Pt's having coughing. No BM. Kept mepilex dressing on sacral/coccyx area for redness.
[2022-08-10] MEDS: D5/0.45 NS 1,000 ML IV SCH (06:30)
[2022-08-10] MEDS: LEVOTHYROXINE SODIUM 0.025 MG TABLET PO SCH (06:32)
[2022-08-10] MEDS: DOCUSATE SODIUM 250 MG CAPSULE PO SCH (10:09)
[2022-08-10] MEDS: FUROSEMIDE 20 MG/2 ML VIAL IVP SCH (10:09)
[2022-08-10] MEDS: amLODIPine BESYLATE 5 MG TABLET PO SCH (10:10)
[2022-08-10] MEDS: PANTOPRAZOLE SODIUM 40 MG TAB PO SCH (10:11)
[2022-08-10] MEDS: POLYETHYLENE GLYCOL 3350, 17 GM/ POWD.PACK PO SCH (10:11)
[2022-08-10] MEDS: POTASSIUM CHLORIDE 20 MEQ/PKT PACKET PO SCH (10:11)
[2022-08-10] MEDS: LIDOCAINE PATCH 5% 1 EA TP SCH (10:12)
[2022-08-10] MEDS: SORBITOL 70% SOLUTION, 30 ML UDBTL PO SCH (10:17)
[2022-08-10] MEDS: ENOXAPARIN SODIUM 40 MG/0.4 ML SYRINGE SUBCUT SCH (10:18)
[2022-08-10] MEDS: THEOPHYLLINE ANHYDROUS 200 MG TAB.SR.12H PO SCH ×2 (10:18→15:00)
--- NOTE | 2022-08-10 15:45 | NUR ---
SUPERINTENDENT STORAGE AREA/HOSPICE DISCHARGE ACSW Mone contacted [facility] to obtain update on placement for patient. According to [facility], they have spoken to patient's nephew Kwadwo and they are currently collaborating with a board and care to secure placement as patient is ready for discharge. ACSW Mone spoke to patient's nephew Kwadwo to address his concerns with patient being ready and transfer process. Transport is scheduled for 5pm. ACSW updated assigned RN Ainl with time. Aircraft Cleaning Supervisor will continue to be available as needed
--- NOTE | 2022-08-10 16:44 | NUR ---
Nutrition F/U: RDN reviewed pts current EMR including diet Hx, physician notes, nursing notes, pertinent labs, medications, procedures, care trends, and care activity. Shortened note d/t high RD workload Admission Dx: Sepsis, Mets prostate CA PMH: per EMR: 76-year-old gentleman who is known to have prostate cancer with metastasis presented with severe weakness and lethargy was found to have complete heart block PMHx: Dyslipidemia, Essential hypertension on beta-krystal last dose on Saturday morning, Radiation therapy S S/p colonoscopy 08/02: large colon mass found Subjective information: RD rounded to patient room and s/w patient at bedside. Patient had reported altered taste, not enjoying foods, and requested chocolate flavor ensure. RD provided pt with chocolate ensure and alberto patient cold pureed peaches for patient to try. RD also provided patient with education and h/o on tips for common nutrition problems for cancer patients. ED education patient on tips for altered taste, all questions answered. Pt was awaiting hospice evaluation; patient d/c today. Current diet/Nutrition support: Mechanical Soft x 3 days Current % PO 25% x 1 meals; worsened Estimated Energy Expenditure (kcals/day) 8161-0663 kcal (30-35 kcal/kg IBW d/t BMI, mets CA) Estimated Protein Required (g/day) 100- 126 g (1.2-1.5 g/kg IBW d/t CA, BMI) Estimated Fluid Required (l/day) 2.5-2.9 L (1mL/kcal d/t maintenance) Problem/Etiology/Signs/Symptoms * Risk for malnutrition R/T catabolic illness AEB estimated nutritional needs for CA/wt gain promotion, BMI: 18.3 kg/m2. *Ongoing Expected Outcomes/Goals PO intake provides >85% estimated nutrient needs, nutrition-related labs trending WNL, continued skin integrity, BM q1-3 days Dietitian Recommendations * Continue mechanical soft diet Follow Up High Risk: F/U in 2-3 days
--- NOTE | 2022-08-10 16:45 | NUR ---
Dietitian Recommendations * Continue mechanical soft diet Please refer to nutrition f/u for details, thanks! Bronwyn Ramos MPH, RDN
== END 2022-08-10 17:30 | disposition hospice, home (50) | DRG 871 ==
LOC: SED 17:02 → STU 21:06 → SIC 07-21 04:05 → STU 07-23 23:39 → SMU 07-31 15:55
PROVIDERS: ADMIT Internal Medicine; ATTEND Internal Medicine
PROC: 05HY33Z Insertion of Infusion Device into Upper Vein, Percutaneous Approach (ICD-10-PCS; 2022-07-23)
PROC: B54NZZA Ultrasonography of Left Upper Extremity Veins, Guidance (ICD-10-PCS; 2022-07-23)
PROC: 0DBL8ZX Excision of Transverse Colon, Via Natural or Artificial Opening Endoscopic, Diagnostic (ICD-10-PCS; principal; 2022-08-02 09:15)
PROC: 3E0H8GC Introduction of Other Therapeutic Substance into Lower GI, Via Natural or Artificial Opening Endoscopic (ICD-10-PCS; 2022-08-02 09:15)
DX: A41.9 Sepsis, unspecified organism (principal); E43 Unspecified severe protein-calorie malnutrition; J18.9 Pneumonia, unspecified organism; C18.9 Malignant neoplasm of colon, unspecified; C78.00 Secondary malignant neoplasm of unspecified lung; C78.7 Secondary malignant neoplasm of liver and intrahepatic bile duct; I44.2 Atrioventricular block, complete; Z68.1 Body mass index [BMI] 19.9 or less, adult; I95.9 Hypotension, unspecified; C61 Malignant neoplasm of prostate; E03.9 Hypothyroidism, unspecified; E78.5 Hyperlipidemia, unspecified; I10 Essential (primary) hypertension; I36.1 Nonrheumatic tricuspid (valve) insufficiency; I34.0 Nonrheumatic mitral (valve) insufficiency; R53.83 Other fatigue; I44.1 Atrioventricular block, second degree; R00.1 Bradycardia, unspecified; E83.52 Hypercalcemia; E83.51 Hypocalcemia; F32.A Depression, unspecified; R53.81 Other malaise; Z20.822 Contact with and (suspected) exposure to COVID-19; E87.6 Hypokalemia; E88.09 Other disorders of plasma-protein metabolism, not elsewhere classified; F03.90 Unspecified dementia, unspecified severity, without behavioral disturbance, psychotic disturbance, mood disturbance, and anxiety; K64.4 Residual hemorrhoidal skin tags; Z87.891 Personal history of nicotine dependence; Z85.46 Personal history of malignant neoplasm of prostate; Z88.8 Allergy status to other drugs, medicaments and biological substances; Z79.899 Other long term (current) drug therapy
CPT/HCPCS: 36415; 45380; 45381; 70460-TC; 71045; 71250-TC; 76376; 80048; 80053; 80061; 80202; 81003; 82272; 82306; 82330; 82378; 82962; 83519; 83605; 83735; 83880; 83970; 84100; 84153; 84403; 84439; 84443; 85025; 85610-TC; 85651-TC; 86140; 87040; 87081; 88305; 93005; 93306; 96361; 96365; 96375; 97110-GP; 97112-GP; 97116-GP; 97530-GP; 99291; A9503; C1751; G0378; J0360; J0696; J1450; J1650; J1940; J2250; J2270; J2405; J2765; J3010; J3370; J7030; J7042; J7050; J7060